=== PATIENT | male | born 1955 | race Two or more races ===

== ENCOUNTER 2018-05-21 16:15 | Emergency (ER) | payer MEDICARE, MEDICAID ==
[~2018-05-21] VITALS: Ht 157.5 cm; Wt 80.7 kg
[2018-05-21 16:20] VITALS: BP 152/90
[2018-05-21] MEDS ORDERED: METOPROLOL TART25 MG ORAL (16:26)
[2018-05-21] MEDS ORDERED: METFORMIN HCL500 M1 ORAL (16:26)
[2018-05-21] MEDS ORDERED: ZANTAC150 MG ORAL (16:26)
[2018-05-21] MEDS ORDERED: AMLODIPINE BES2.5 MG ORAL (16:26)
[2018-05-21] MEDS ORDERED: ENALAPRIL MALEAT5 MG ORAL (16:26)
[2018-05-21] MEDS ORDERED: ASPIRIN81 MG ORAL (16:26)
[2018-05-21] MEDS ORDERED: Morphine Sulfate 4mg/ml Inj (IV/IM USE ONLY) IVP ONE (16:30)
[2018-05-21] MEDS ORDERED: Isovue-300 100ml vial INJ PRN (16:30)
--- NOTE | 2018-05-21 16:53 | Emergency Room Report ---
History of Present Illness General Chief Complaint: Abdominal Pain Source: Patient, EMS Present Illness HPI Patient presents with severe abdominal pain. This began earlier today. This is his bellybutton. Radiating throughout his abdomen. He denies any vomiting or diarrhea. He is a been able to move his bowels without any trouble. Denies any fevers or chills. The pain is 8-9/10 burning and aching and constant. He believes that he started having pain is bellybutton 2 years ago after cardiac catheterization while he is waking up from anesthesia he sat up quickly and started having pain there but it is not been painful until today. Denies dysuria. He is thirsty and anxious. He denies recent chest pain, cough, dyspnea. Allergies: Coded Allergies: No Known Allergies (Unverified , 05/21/18) Patient History Past Medical History: see triage record Past Surgical History: CABG Social History: Denies: smoking, alcohol use, drug use Social History Narrative from [facility] [place] Reviewed Nursing Documentation: PMH: Agreed; PSxH: Agreed Nursing Documentation-PMH Hx Cardiac Problems: Yes - heard surgery 2 years ago Hx Hypertension: Yes Hx Diabetes: Yes Review of Systems All Other Systems: negative except mentioned in HPI Physical Exam Vital Signs Date Time Temp Pulse Resp B/P (MAP) Pulse Ox O2 Delivery O2 Flow Rate FiO2 05/21/18 16:08 97.9 90 22 152/90 93 Room Air Sp02 EP Interpretation: reviewed, normal General Appearance: well appearing, GCS 15, mild distress Head: normocephalic Eyes: bilateral eye normal inspection, bilateral eye PERRL ENT: moist mucus membranes Neck: supple Respiratory: lungs clear, normal breath sounds Cardiovascular #1: regular rate, rhythm Cardiovascular #2: 2+ radial (R) Gastrointestinal: normal inspection, normal bowel sounds, no mass, non- distended, no rebound, guarding, tenderness - umbilical Musculoskeletal: back normal, gait/station normal, normal range of motion Neurologic: alert, oriented x3, grossly normal Psychiatric: anxious Skin: normal inspection, warm/dry Medical Decision Making Diagnostic Impression: Primary Impression: Strangulated umbilical hernia ER Course Patient presents with abdominal pain. Differential includes diverticulitis, umbilical hernia with strangulation, UTI, gastritis amongst others. Evaluation will be with EKG, chest x-rays CT the abdomen and labs. My pressing on the right hernia would not reduce immediately but the patient has severe pain there. He will also be getting IV hydration and analgesia. EKG no injury. CXR CABG. Labs with normal WBC. CT with umbilical hernia with small bowel present. Improved initially with morphine. Then pain returned. Dr. Lo saw patient and agrees patient needs to go to OR. Requests dose of Ancef. Discussed with HMO. Dr. Howard accepts for transfer. Laboratory Tests Test 05/21/18 16:40 05/21/18 17:40 White Blood Count 8.5 K/UL (4.8-10.8) Red Blood Count 6.43 M/UL (4.70-6.10) H Hemoglobin 18.0 G/DL (14.2-18.0) Hematocrit 53.9 % (42.0-52.0) H Mean Corpuscular Volume 84 FL (80-99) Mean Corpuscular Hemoglobin 28.0 PG (27.0-31.0) Mean Corpuscular Hemoglobin Concent 33.5 G/DL (32.0-36.0) Red Cell Distribution Width 10.8 % (11.6-14.8) L Platelet Count 285 K/UL (150-450) Mean Platelet Volume 7.1 FL (6.5-10.1) Neutrophils (%) (Auto) 63.0 % (45.0-75.0) Lymphocytes (%) (Auto) 29.8 % (20.0-45.0) Monocytes (%) (Auto) 5.0 % (1.0-10.0) Eosinophils (%) (Auto) 1.2 % (0.0-3.0) Basophils (%) (Auto) 1.0 % (0.0-2.0) Prothrombin Time 10.5 SEC (9.30-11.50) Prothrombin Time INR 1.0 (0.9-1.1) PTT 31 SEC (23-33) Sodium Level 135 MMOL/L (136-145) L Potassium Level 4.0 MMOL/L (3.5-5.1) Chloride Level 98 MMOL/L (98-107) Carbon Dioxide Level 25 MMOL/L (21-32) Anion Gap 12 mmol/L (5-15) Blood Urea Nitrogen 16 mg/dL (7-18) Creatinine 1.4 MG/DL (0.55-1.30) H Estimate Glomerular Filtration Rate 50.9 mL/min (>60) Glucose Level 165 MG/DL (74-106) H Calcium Level 9.6 MG/DL (8.5-10.1) Total Bilirubin 0.6 MG/DL (0.2-1.0) Aspartate Amino Transferase (AST) 25 U/L (15-37) Alanine Aminotransferase (ALT) 48 U/L (12-78) Alkaline Phosphatase 126 U/L (46-116) H Total Creatine Kinase 166 U/L (26-308) Troponin I 0.000 ng/mL (0.000-0.056) Total Protein 8.5 G/DL (6.4-8.2) H Albumin 4.0 G/DL (3.4-5.0) Globulin 4.5 g/dL Albumin/Globulin Ratio 0.9 (1.0-2.7) L Lipase 321 U/L (73-393) Urine Color Lorri Urine Appearance Slightly cloudy Urine pH 8 (4.5-8.0) Urine Specific [place] 1.010 (1.005-1.035) Urine Protein 3+ (NEGATIVE) H Urine Glucose (UA) Negative (NEGATIVE) Urine Ketones 2+ (NEGATIVE) H Urine Blood Negative (NEGATIVE) Urine Nitrite Negative (NEGATIVE) Urine Bilirubin Negative (NEGATIVE) Urine Ictotest Negative (NEGATIVE) Urine Urobilinogen Normal MG/DL (0.0-1.0) Urine Leukocyte Esterase 1+ (NEGATIVE) H Urine RBC 0 /HPF (0 - 0) Urine WBC 5-10 /HPF (0 - 0) H Urine Squamous Epithelial Cells Occasional /LPF Urine Bacteria Few /HPF (NONE) Urine Mucus Few /LPF (NONE/OCC) H EKG Diagnostic Results Rate: normal Rhythm: NSR ST Segments: no acute changes Rhythm Strip Diag. Results EP Interpretation: yes Rhythm: NSR, no PVC's, no ectopy CT/MRI/US Diagnostic Results CT/MRI/US Diagnostic Results : Imaging Test Ordered: abd/pelvis Impression umbilical hernia with small bowel Last Vital Signs Date Time Temp Pulse Resp B/P (MAP) Pulse Ox O2 Delivery O2 Flow Rate FiO2 05/21/18 22:45 98.1 67 16 135/84 97 Room Air Status: improved Disposition: XFER T-TRM HOSP Condition: Serious Everett Bynum MD May 21, 2018 16:53
[2018-05-21 16:54] LABS: EOSINOPHILS % (AUTO) 1.2 % (0.0-3.0); HEMATOCRIT 53.9 % (42.0-52.0); LYMPHOCYTES % (AUTO) 29.8 % (20.0-45.0); MEAN CORPUSCULAR VOLUME 84 FL (80-99); PLATELET COUNT 285 K/UL (150-450); RED BLOOD COUNT 6.43 M/UL (4.70-6.10); RED CELL DISTRIBUTION WIDTH 10.8 % (11.6-14.8); WHITE BLOOD COUNT 8.5 K/UL (4.8-10.8)
[2018-05-21 17:29] LABS: ANION GAP 12 mmol/L (5-15); BLOOD UREA NITROGEN 16 mg/dL (7-18); CALCIUM 9.6 MG/DL (8.5-10.1); CARBON DIOXIDE 25 MMOL/L (21-32); CHLORIDE 98 MMOL/L (98-107); CREATININE 1.4 MG/DL (0.55-1.30); SODIUM 135 MMOL/L (136-145)
[2018-05-21 17:33] LABS: ALANINE AMINOTRANSFERASE 48 U/L (12-78); ALBUMIN/GLOBULIN RATIO 0.9 (1.0-2.7); ALKALINE PHOSPHATASE 126 U/L (46-116); ASPARTATE AMINO TRANSFERASE 25 U/L (15-37); BILIRUBIN,TOTAL 0.6 MG/DL (0.2-1.0); CREATINE KINASE 166 U/L (26-308)
[2018-05-21 17:41] VITALS: BP 140/65
[2018-05-21 17:51] LABS: BILIRUBIN, URINE NEGATIVE (NEGATIVE); COLOR,URINE AMBER; GLUCOSE, URINE (UA) NEGATIVE (NEGATIVE); KETONES,URINE 2+ (NEGATIVE); LEUKOCYTE ESTERASE ,URINE 1+ (NEGATIVE); NITRITE,URINE NEGATIVE (NEGATIVE); PH,URINE 8 (4.5-8.0); PROTEIN,URINE 3+ (NEGATIVE); UROBILINOGEN,URINE NORMAL MG/DL (0.0-1.0)
[2018-05-21 17:57] LABS: APPEARANCE,URINE SLIGHTLY CLOUDY
[2018-05-21] MEDS ORDERED: fentaNYL 100 mcg/2 mL IV ONE (20:30)
[2018-05-21] MEDS ORDERED: ceFAZolin 2gm/50ml Premix 50 ML IVPB ONE (21:15)
[2018-05-21 21:45] VITALS: BP 136/67
[2018-05-21 22:10] VITALS: BP 135/84
--- NOTE | 2018-05-21 22:30 | Consultation ---
DATE OF CONSULTATION: 05/21/2018 CONSULTING PHYSICIAN: Cortney Lo M.D. REFERRING PHYSICIAN: Everett Bynum M.D. REASON FOR CONSULTATION: Pain in the umbilicus. HISTORY OF PRESENT ILLNESS: This is a 63-year-old male, who presented to emergency room complaining of a lump and pain in the umbilicus since noon today. He stated that he denied any previous history of similar episodes. He has a sudden onset of this pain. He denies nausea or vomiting. He has had a normal bowel movement yesterday. PAST MEDICAL HISTORY: He denies allergies, asthma, and renal diseases. He has history of diabetes, hypertension, and coronary artery disease. PAST SURGICAL HISTORY: Include coronary artery bypass graft. MEDICATIONS: Include amlodipine, aspirin, enalapril, metformin, metoprolol, and ranitidine. SOCIAL HISTORY: The patient is a 63-year-old male, who is and father of four children. He is unemployed. He denies smoking or drinking. REVIEW OF SYSTEMS: Noncontributory. PHYSICAL EXAMINATION: GENERAL: The patient appeared to be a well-developed, well-nourished, 63-year-old male, lying on the gurney, complaining of the pain in the umbilicus. HEENT: Head is normocephalic and atraumatic. Eyes, pupils are equal, round, and reactive to light. Mouth is clear. NECK: There is no palpable thyromegaly or adenopathy. CHEST: Clear to auscultation and percussion. HEART: There is no gallop or murmur. S1 and S2 are within normal limits. He has a scar of the median sternotomy incision. ABDOMEN: Mildly protuberant, but soft. He has irreducible and tender umbilical hernia at the size of . There is no palpable organomegaly. GENITALIA: Normal. EXTREMITIES: Within normal limits. ASSESSMENT: Incarcerated umbilical hernia. PLAN: The patient requires an urgent umbilical herniorrhaphy does not wish to transfer the patient and the surgery will be performed as soon as possible. The risk and benefit has been explained to the patient. Cortney Lo M.D. DR: STEVEN JOB#: [id number] CC:
[2018-05-21 22:45] VITALS: BP 135/84
--- NOTE | 2018-05-22 10:10 | Diagnostic Imaging Report ---
Indication: Chest pain Technique: One view of the chest Comparison: none Findings: The lungs and pleural spaces are clear. The heart size is normal. There is evidence of prior CABG Impression: No acute process
--- NOTE | 2018-05-22 10:23 | Diagnostic Imaging Report ---
Indication: Abdominal pain Technique: Spiral acquisitions obtained through the abdomen and pelvis. Patient ingested a limited amount of oral contrast No IV contrast utilized, per referring physician request.. Multiplanar reconstructions were generated. Total dose length product 667.97 mGycm. CTDIvol(s) 12.03 mGy. Dose reduction achieved using automated exposure control Comparison: None Findings: There is and umbilical hernia which contains a knuckle of small bowel. Small bowel loops leading into the hernia are dilated and fluid-filled, and small bowel loops leading out of the hernia are collapsed. There is no significant infiltration of the fat surrounding the hernia or fluid within the hernia sac. The appendix is normal. There are colonic diverticula. No evidence of diverticulitis. No free or loculated intraperitoneal gas or fluid is evident. Distal esophagus, stomach, duodenum are unremarkable. Lack of IV contrast limits assessment of the solid organs. The liver, gallbladder, bile ducts, pancreas, spleen, adrenals, right kidney are unremarkable. The left kidney demonstrates a large cyst coming off of the upper pole. No renal or ureteral calculi, hydronephrosis, or hydroureter. The bladder is unremarkable. No retroperitoneal or mesenteric mass or adenopathy. No pelvic mass or adenopathy. There is a tiny fat-containing left inguinal hernia. There are small bilateral scrotal hydroceles incidentally noted. The prostate and seminal vesicles are unremarkable. The lung bases demonstrate posterior dependent atelectatic changes. The bones are unremarkable. Impression: Positive for small bowel obstruction secondary to an umbilical hernia containing a knuckle of small bowel Colonic diverticulosis. No evidence of diverticulitis Incidental findings as noted, including left renal cyst, bilateral small scrotal hydroceles, small fat-containing left inguinal hernia This agrees with the preliminary interpretation provided overnight by [facility] teleradiology service. The CT scanner at [facility] is accredited by the [employer] and the scans are performed using protocols designed to limit radiation exposure to as low as reasonably achievable to attain images of sufficient resolution adequate for diagnostic evaluation.
== END 2018-05-21 23:20 | disposition short-term general hospital (02) ==
LOC: EDBD 16:15 → EMR 17:07
DX: K42.0 Umbilical hernia with obstruction, without gangrene (principal); I10 Essential (primary) hypertension; E11.9 Type 2 diabetes mellitus without complications; Z86.79 Personal history of other diseases of the circulatory system; Z95.1 Presence of aortocoronary bypass graft
CPT/HCPCS: 36415; 71045; 74176; 80053; 81003; 82550; 83690; 84484; 85025; 85610; 85730; 86850; 86900; 86901; 93005; 96361; 96365; 96375; 99285; J0690; J2270; J2405; J3010; S0028

== ENCOUNTER 2018-07-02 07:38 | Emergency (ER) | payer MEDICARE, MEDICAID ==
[~2018-07-02] VITALS: Ht 172.7 cm; Wt 81.6 kg
--- NOTE | 2018-07-02 07:14 | NUR ---
ED Nurse Note: Pt from home brought in by ambulance due to right leg pain x 3 days. Denies trauma/injury. Pt states pain is starting from his right hip that shoots to the back of his lower leg. Pt is AAO x4, in severe pain and grimacing. No respiratory distress.
--- NOTE | 2018-07-02 07:17 | NUR ---
ED Nurse Note: Dr Bynum at the bed side.
--- NOTE | 2018-07-02 07:32 | NUR ---
ED Nurse Note: Dr Bynum is okay for pt to have oral intake. Water provided to patient.
[~2018-07-02 07:38] MED LIST: AMLODIPINE BES2.5 MG ORAL; ASPIRIN81 MG ORAL; ATORVASTATIN CA20 MG ORAL; ENALAPRIL MALEAT5 MG ORAL; METFORMIN HCL500 M1 ORAL; METOPROLOL TART25 MG ORAL; NITRO-BID1 GM TOPIC; ZANTAC150 MG ORAL
[2018-07-02] MEDS ORDERED: Ketorolac 30mg Inj IV ONE (07:45)
[2018-07-02] MEDS ORDERED: Morphine Sulfate 4mg/ml Inj (IV/IM USE ONLY) IVP ONE (07:45)
[2018-07-02 08:00] VITALS: BP 122/72
--- NOTE | 2018-07-02 08:00 | NUR ---
ED Nurse Note: Blood collected and sent.
--- NOTE | 2018-07-02 08:05 | NUR ---
ED Nurse Note: Patient denies any pain at this time. Relaxed and calm. VSS. Waiting for xray and lab results.
--- NOTE | 2018-07-02 08:05 | Emergency Room Report ---
History of Present Illness General Chief Complaint: Pain Source: Patient Present Illness HPI Patient presents with right thigh and knee pain. This began 3-4 days ago. It' s been increasingly getting worse. He states the pain is severe at this time. He denies back pain. Denies any fevers, chills, nausea, vomiting, diarrhea, dysuria. He denies having pain like this before. He's been taking Motrin. The last dose was last night. It helps just a little bit. The pain is extreme at this time 10/10 burning. Is not worse when he is standing or the legs dependent. It radiates both towards the hip and also downwards towards the calf. The patient is hypertensive, diabetic and has had open heart surgery. He had a fleeting bout of chest pain when the pain got severe today. He denies any edema or calf tenderness. The patient was seen in May for a strangulated umbilical hernia. His hemoglobin at that time was 18. Allergies: Coded Allergies: No Known Allergies (Unverified , 05/21/18) Patient History Past Medical History: see triage record Past Surgical History: CABG Social History: Denies: smoking, alcohol use Social History Narrative At home Reviewed Nursing Documentation: PMH: Agreed; PSxH: Agreed Nursing Documentation-PMH Past Medical History: No History, Except For Hx Hypertension: Yes Hx Diabetes: Yes Review of Systems All Other Systems: negative except mentioned in HPI Physical Exam Vital Signs Date Time Temp Pulse Resp B/P (MAP) Pulse Ox O2 Delivery O2 Flow Rate FiO2 07/02/18 07:04 86 20 148/80 Room Air 98% sat Sp02 EP Interpretation: reviewed, normal General Appearance: alert, GCS 15, moderate distress Head: normocephalic Eyes: bilateral eye normal inspection, bilateral eye PERRL ENT: moist mucus membranes Neck: supple Respiratory: lungs clear, normal breath sounds Cardiovascular #1: regular rate, rhythm Cardiovascular #2: 2+ radial (R) Gastrointestinal: normal inspection, normal bowel sounds, non tender, no mass, non-distended Musculoskeletal: back normal, normal range of motion, no calf tenderness, tender - Posterior knee, ligaments stable. No effusion or warmth. Passive range of motion of hip and ankle without pain. Straight leg raise negative Neurologic: alert, oriented x3, motor strength/tone normal, DTRs symmetric, sensory intact, speech normal Psychiatric: anxious Skin: normal inspection, warm/dry Medical Decision Making Diagnostic Impression: Primary Impression: Right knee pain Qualified Codes: M25.561 - Pain in right knee Additional Impressions: Marginal sclerosis distal femoral shaft Polycythemia ER Course Patient presents with right thigh pain for 3-4 days. Based on exam this is not coming from his back. Differential includes gout, osteoarthritis, pseudogout, myositis amongst others. Evaluation will be with EKG, femur x-ray and labs. The patient will be treated with IV hydration and analgesia. EKG without injury. Right femur with marginal sclerosis distal area. CBC with normal white count but elevated hemoglobin. CMP negative. Uric acid negative. Urinalysis negative. Patient improved with treatment. Now ambulatory. Hgb is elevated. Will give fluids (was elevated in May). Discussed findings with patient and given x-ray copies and labs. Patient stable for outpatient observation and treatment. Laboratory Tests Test 07/02/18 07:50 07/02/18 08:18 White Blood Count 7.1 K/UL (4.8-10.8) Red Blood Count 6.36 M/UL (4.70-6.10) H Hemoglobin 18.5 G/DL (14.2-18.0) *H Hematocrit 55.2 % (42.0-52.0) H Mean Corpuscular Volume 87 FL (80-99) Mean Corpuscular Hemoglobin 29.1 PG (27.0-31.0) Mean Corpuscular Hemoglobin Concent 33.5 G/DL (32.0-36.0) Red Cell Distribution Width 11.5 % (11.6-14.8) L Platelet Count 281 K/UL (150-450) Mean Platelet Volume 7.4 FL (6.5-10.1) Neutrophils (%) (Auto) 54.4 % (45.0-75.0) Lymphocytes (%) (Auto) 36.5 % (20.0-45.0) Monocytes (%) (Auto) 6.0 % (1.0-10.0) Eosinophils (%) (Auto) 1.4 % (0.0-3.0) Basophils (%) (Auto) 1.6 % (0.0-2.0) Erythrocyte Sedimentation Rate 7 MM/HR (0-20) Prothrombin Time 10.4 SEC (9.30-11.50) Prothrombin Time INR 1.0 (0.9-1.1) PTT 29 SEC (23-33) Sodium Level 138 MMOL/L (136-145) Potassium Level 3.5 MMOL/L (3.5-5.1) Chloride Level 100 MMOL/L (98-107) Carbon Dioxide Level 20 MMOL/L (21-32) L Anion Gap 19 mmol/L (5-15) H Blood Urea Nitrogen 7 mg/dL (7-18) Creatinine 1.3 MG/DL (0.55-1.30) Estimate Glomerular Filtration Rate 55.4 mL/min (>60) Glucose Level 164 MG/DL (74-106) H Uric Acid 6.6 MG/DL (2.6-7.2) Calcium Level 10.0 MG/DL (8.5-10.1) Total Bilirubin 0.6 MG/DL (0.2-1.0) Aspartate Amino Transferase (AST) 26 U/L (15-37) Alanine Aminotransferase (ALT) 46 U/L (12-78) Alkaline Phosphatase 105 U/L (46-116) C-Reactive Protein, Quantitative < 0.4 mg/dL (0.00-0.90) Total Protein 7.8 G/DL (6.4-8.2) Albumin 4.1 G/DL (3.4-5.0) Globulin 3.7 g/dL Albumin/Globulin Ratio 1.1 (1.0-2.7) Urine Color Pale yellow Urine Appearance Clear Urine pH 9 (4.5-8.0) Urine Specific [place] 1.015 (1.005-1.035) Urine Protein 2+ (NEGATIVE) H Urine Glucose (UA) Negative (NEGATIVE) Urine Ketones 2+ (NEGATIVE) H Urine Blood Negative (NEGATIVE) Urine Nitrite Negative (NEGATIVE) Urine Bilirubin Negative (NEGATIVE) Urine Urobilinogen Normal MG/DL (0.0-1.0) Urine Leukocyte Esterase Negative (NEGATIVE) Urine RBC 0 /HPF (0 - 0) Urine WBC 0 /HPF (0 - 0) Urine Squamous Epithelial Cells None /LPF (NONE/OCC) Urine Bacteria None /HPF (NONE) EKG Diagnostic Results Rate: normal Rhythm: NSR ST Segments: no acute changes - Left axis deviation Rhythm Strip Diag. Results EP Interpretation: yes Rhythm: NSR, no PVC's, no ectopy Other X-Ray Diagnostic Results Other X-Ray Diagnostic Results : X-Ray ordered: R femur # of Views/Limited Vs Complete: 4 View Indication: Pain EP Interpretation: Yes Interpretation: no dislocation, no soft tissue swelling, no fractures, other - marginated sclerosis distal femoral shaft Impression: Other Electronically Signed by: Electronically signed by Everett Bynum MD Last Vital Signs Date Time Temp Pulse Resp B/P (MAP) Pulse Ox O2 Delivery O2 Flow Rate FiO2 07/02/18 10:11 97.9 64 17 117/67 98 Room Air Status: improved Disposition: HOME, SELF-CARE Condition: Improved Scripts Acetaminophen (Tylenol) 325 Mg Tablet 650 MG ORAL Q6H PRN for Prn Pain/Headache/Temp > 101, #20 TAB 0 Refills Prov: Everett Bynum MD 07/02/18 Tramadol Hcl* (ULTRAM*) 50 Mg Tablet 50 MG ORAL Q6H PRN for For Pain, #10 TAB 0 Refills Prov: Everett Bynum MD 07/02/18 Everett Bynum MD Jul 02, 2018 08:05
--- NOTE | 2018-07-02 08:15 | NUR ---
ED Nurse Note: safety technician at the bed side for xray.
--- NOTE | 2018-07-02 08:21 | NUR ---
ED Nurse Note: Urine collected and sent.
[2018-07-02 08:22] LABS: BASOPHILS % (AUTO) 1.6 % (0.0-2.0); EOSINOPHILS % (AUTO) 1.4 % (0.0-3.0); HEMATOCRIT 55.2 % (42.0-52.0); LYMPHOCYTES % (AUTO) 36.5 % (20.0-45.0); MEAN CORPUSCULAR VOLUME 87 FL (80-99); NEUTROPHILS % (AUTO) 54.4 % (45.0-75.0); PLATELET COUNT 281 K/UL (150-450); RED BLOOD COUNT 6.36 M/UL (4.70-6.10); RED CELL DISTRIBUTION WIDTH 11.5 % (11.6-14.8); WHITE BLOOD COUNT 7.1 K/UL (4.8-10.8)
[2018-07-02 08:24] LABS: HEMOGLOBIN 18.5 G/DL (14.2-18.0)
[2018-07-02 08:35] LABS: APPEARANCE,URINE CLEAR; BILIRUBIN, URINE NEGATIVE (NEGATIVE); COLOR,URINE PALE YELLOW; GLUCOSE, URINE (UA) NEGATIVE (NEGATIVE); KETONES,URINE 2+ (NEGATIVE); LEUKOCYTE ESTERASE ,URINE NEGATIVE (NEGATIVE); NITRITE,URINE NEGATIVE (NEGATIVE); PH,URINE 9 (4.5-8.0); PROTEIN,URINE 2+ (NEGATIVE); UROBILINOGEN,URINE NORMAL MG/DL (0.0-1.0)
[2018-07-02 08:36] LABS: ANION GAP 19 mmol/L (5-15); BLOOD UREA NITROGEN 7 mg/dL (7-18); CARBON DIOXIDE 20 MMOL/L (21-32); CHLORIDE 100 MMOL/L (98-107); CREATININE 1.3 MG/DL (0.55-1.30); POTASSIUM 3.5 MMOL/L (3.5-5.1); SODIUM 138 MMOL/L (136-145)
[2018-07-02 08:41] LABS: ALANINE AMINOTRANSFERASE 46 U/L (12-78); ALBUMIN 4.1 G/DL (3.4-5.0); ALBUMIN/GLOBULIN RATIO 1.1 (1.0-2.7); ALKALINE PHOSPHATASE 105 U/L (46-116); ASPARTATE AMINO TRANSFERASE 26 U/L (15-37); BILIRUBIN,TOTAL 0.6 MG/DL (0.2-1.0)
--- NOTE | 2018-07-02 09:10 | NUR ---
ED Nurse Note: Patient ambulated to the restroom with steady gait.
--- NOTE | 2018-07-02 09:20 | Diagnostic Imaging Report ---
EXAM: XR Right Femur, 2 Views CLINICAL HISTORY: PAIN TECHNIQUE: Frontal and lateral views of the right femur. COMPARISON: No relevant prior studies available. FINDINGS: Bones/joints: Well marginated sclerosis of the distal femoral shaft on lateral view. No acute fracture. No dislocation. Soft tissues: Unremarkable. IMPRESSION: No acute fracture or dislocation. Well marginated sclerosis of the distal femoral shaft. Consider CT or MR for further evaluation. [employer] 07/02/18 09:45 Call From [facility] Misa BLAS on 07/02 09:44 (-08:00)
--- NOTE | 2018-07-02 09:20 | NUR ---
ED Nurse Note: Pt ambulated back to his bed. Re-attached to telemetry monitor. VSS.
[2018-07-02] MEDS ORDERED: Sodium Chloride 500ML 500 ML IV ONE (09:30)
[2018-07-02 10:05] VITALS: BP 117/67
[2018-07-02] MEDS ORDERED: TRAMADOL HCL50 MG ORAL (10:06)
[2018-07-02] MEDS ORDERED: TYLENOL325 MG ORAL (10:06)
[2018-07-02 10:11] VITALS: BP 117/67
--- NOTE | 2018-07-02 10:11 | NUR ---
ED Nurse Note: Pt cleared by ER MD for discharge. ACI/prescription was given and explained to pt and verbalized understanding of teachings. All medical devices such as ID band/IV removed. Pt is AAO x4, ambulatory and left with all personal belongings.
--- NOTE | 2018-07-02 11:06 | Cardiology Report ---
APPROVED REPORT EKG Measurement Heart [id number] Normal sinus rhythm Left axis deviation Possible Anterior infarct, age undetermined Abnormal ECG
== END 2018-07-02 13:00 | disposition home or self-care (01) ==
LOC: EDBD 07:38 → EMR 10:15
DX: M25.561 Pain in right knee (principal); D75.1 Secondary polycythemia; M89.9 Disorder of bone, unspecified; I10 Essential (primary) hypertension; E11.9 Type 2 diabetes mellitus without complications; M79.651 Pain in right thigh
CPT/HCPCS: 36415; 73552; 80053; 81001; 84550; 85025; 85610; 85651; 85730; 86140; 93005; 96374; 96375; 99284; J1885; J2270; J2405

== ENCOUNTER 2019-05-23 22:27 | Inpatient (IN) | payer MEDICAID, MEDICARE, OTHER ==
[~2019-05-23] VITALS: Ht 165.1 cm; Wt 78.0 kg
[~2019-05-23 22:27] MED LIST changes: +TRAMADOL HCL50 MG ORAL; +TYLENOL325 MG ORAL
--- NOTE | 2019-05-23 22:30 | NUR ---
ED Nurse Note: pt has an umbilical hernia that is tender to palpation. pt refused letting ERMD reduce the hernia. will continue to monitor pt
--- NOTE | 2019-05-23 22:30 | NUR ---
ED Nurse Note: pt presents to ED from home via EMS arrival, RA 26 for abd px. pt reports the px started at 1100 this AM and has gotten worse. pt rates the px a 10/10 with some nuasea but no vomiting or diarrhea. pt states that he has an umbilical hernia and that is the area in which the px is. pt denies radiation of px
[2019-05-23 22:33] VITALS: BP 154/96
[2019-05-23] MEDS ORDERED: Omnipaque-300 100ml vial INJ PRN (22:45)
[2019-05-23 23:15] LABS: BASOPHILS % (AUTO) 0.7 % (0.0-2.0); HEMATOCRIT 54.1 % (42.0-52.0); LYMPHOCYTES % (AUTO) 19.3 % (20.0-45.0); MEAN CORPUSCULAR VOLUME 84 FL (80-99); MONOCYTES % (AUTO) 4.6 % (1.0-10.0); NEUTROPHILS % (AUTO) 74.4 % (45.0-75.0); PLATELET COUNT 343 K/UL (150-450); RED BLOOD COUNT 6.46 M/UL (4.70-6.10); RED CELL DISTRIBUTION WIDTH 11.4 % (11.6-14.8)
[2019-05-23 23:33] LABS: ANION GAP 15 mmol/L (5-15); BLOOD UREA NITROGEN 17 mg/dL (7-18); CALCIUM 10.2 MG/DL (8.5-10.1); CARBON DIOXIDE 25 MMOL/L (21-32); CHLORIDE 98 MMOL/L (98-107); CREATININE 1.4 MG/DL (0.55-1.30); POTASSIUM 3.7 MMOL/L (3.5-5.1); SODIUM 138 MMOL/L (136-145)
[2019-05-23 23:35] LABS: HEMOGLOBIN 18.4 G/DL (14.2-18.0)
[2019-05-23 23:45] LABS: ALANINE AMINOTRANSFERASE 34 U/L (12-78); ALBUMIN 4.1 G/DL (3.4-5.0); ALKALINE PHOSPHATASE 105 U/L (46-116); ASPARTATE AMINO TRANSFERASE 19 U/L (15-37); BILIRUBIN,TOTAL 0.5 MG/DL (0.2-1.0)
[2019-05-23 23:52] LABS: APPEARANCE,URINE CLEAR; BILIRUBIN, URINE NEGATIVE (NEGATIVE); COLOR,URINE PALE YELLOW; GLUCOSE, URINE (UA) NEGATIVE (NEGATIVE); KETONES,URINE NEGATIVE (NEGATIVE); LEUKOCYTE ESTERASE ,URINE 1+ (NEGATIVE); NITRITE,URINE NEGATIVE (NEGATIVE); PH,URINE 8 (4.5-8.0); PROTEIN,URINE 3+ (NEGATIVE); UROBILINOGEN,URINE NORMAL MG/DL (0.0-1.0)
[2019-05-24] VITALS (15 sets, daily range): BP systolic 108–152; BP diastolic 58–88
[2019-05-24] MEDS ORDERED: Morphine Sulfate 4mg/ml Inj (IV USE ONLY) IVP ONE (01:00)
--- NOTE | 2019-05-24 02:00 | NUR ---
ED Nurse Note: pt appears to be asleep in his bed with his eyes closed. VSS, breathing is even and non-labored. pt given ice packs for umbilical hernia per ERMD request.
--- NOTE | 2019-05-24 02:21 | Emergency Room Report ---
History of Present Illness General Chief Complaint: Abdominal Pain Source: Patient Present Illness HPI 64-year-old male presents with severe abdominal pain 4 hours prior to arrival. He reports pain at maria a-umbilicus. He notes bulging at the umbilicus which she is unable to reduce on its own. He denies any prior history of similar symptoms. And denies any prior history of hernia. He reports prior history of surgeries. He denies any vomiting but reports sensation of nausea. He denies any change in bowel habits. Denies obstipation Allergies: Coded Allergies: No Known Allergies (Unverified , 05/21/18) Patient History PMH Narrative Asthma, kidney disease, diabetes, hypertension, coronary artery disease status post CABG PSxH Narrative CABG 6 years ago Nursing Documentation-PMH Hx Cardiac Problems: Yes - heard surgery 2 years ago Hx Hypertension: Yes Hx Diabetes: Yes Review of Systems Constitutional: Denies: chills, fever Respiratory: Denies: cough, shortness of breath Cardiovascular: Denies: chest pain, palpitations Gastrointestinal: Reports: abdominal pain; Denies: diarrhea, vomiting Genitourinary: Denies: hematuria, pain Musculoskeletal: Denies: joint swelling Skin: Denies: rash, lesions Neurological: Denies: headache, dizziness Physical Exam Vital Signs Date Time Temp Pulse Resp B/P (MAP) Pulse Ox O2 Delivery O2 Flow Rate FiO2 05/23/19 22:22 97.5 88 19 154/96 (115) 100 Room Air Sp02 EP Interpretation: reviewed General Appearance: well appearing, non-toxic, moderate distress - Secondary to pain Head: normocephalic, atraumatic Eyes: bilateral eye normal inspection ENT: hearing grossly normal, EOM grossly intact, moist mucus membranes Neck: supple Respiratory: lungs clear, normal breath sounds, no respiratory distress, speaking full sentences Cardiovascular #1: regular rate, rhythm, normal capillary refill, other - Well- healed chest scar Cardiovascular #2: 2+ radial (R), 2+ radial (L) Gastrointestinal: soft, non-distended, tenderness, hernia - 2 cm over umbilicus dark dusky to color, non-reducible Rectal: deferred Musculoskeletal: moves extm spontaneously, no lower extremity edema Neurologic: grossly normal Psychiatric: mood/affect normal Skin: warm/dry, normal turgor Procedures Critical Care Time Critical Care Time Critical care time includes 35 minutes, not include billable procedures or teaching time, for severe abdominal pain and strangulated versus incarcerated hernia Medical Decision Making Diagnostic Impression: Primary Impression: Hernia Additional Impressions: SBO (small bowel obstruction) Strangulated hernia of abdominal wall ER Course 64-year-old male presents with severe periumbilical abdominal pain found to have a 2 cm irreducible hernia and overlying skin changes. Ordered lab testing and CT abdomen pelvis to look for signs of strangulation or incarceration. CT noted to have small bowel obstruction with transition point being at hernia site. Contacted primary care doctor and surgeon power generation turbine room operator. Laboratory Tests Test 05/23/19 22:35 05/23/19 23:35 White Blood Count 13.0 K/UL (4.8-10.8) H Red Blood Count 6.46 M/UL (4.70-6.10) H Hemoglobin 18.4 G/DL (14.2-18.0) *H Hematocrit 54.1 % (42.0-52.0) H Mean Corpuscular Volume 84 FL (80-99) Mean Corpuscular Hemoglobin 28.4 PG (27.0-31.0) Mean Corpuscular Hemoglobin Concent 34.0 G/DL (32.0-36.0) Red Cell Distribution Width 11.4 % (11.6-14.8) L Platelet Count 343 K/UL (150-450) Mean Platelet Volume 6.5 FL (6.5-10.1) Neutrophils (%) (Auto) 74.4 % (45.0-75.0) Lymphocytes (%) (Auto) 19.3 % (20.0-45.0) L Monocytes (%) (Auto) 4.6 % (1.0-10.0) Eosinophils (%) (Auto) 1.0 % (0.0-3.0) Basophils (%) (Auto) 0.7 % (0.0-2.0) Sodium Level 138 MMOL/L (136-145) Potassium Level 3.7 MMOL/L (3.5-5.1) Chloride Level 98 MMOL/L (98-107) Carbon Dioxide Level 25 MMOL/L (21-32) Anion Gap 15 mmol/L (5-15) Blood Urea Nitrogen 17 mg/dL (7-18) Creatinine 1.4 MG/DL (0.55-1.30) H Estimate Glomerular Filtration Rate 50.7 mL/min (>60) Glucose Level 198 MG/DL (74-106) H Calcium Level 10.2 MG/DL (8.5-10.1) H Total Bilirubin 0.5 MG/DL (0.2-1.0) Aspartate Amino Transferase (AST) 19 U/L (15-37) Alanine Aminotransferase (ALT) 34 U/L (12-78) Alkaline Phosphatase 105 U/L (46-116) Total Protein 8.3 G/DL (6.4-8.2) H Albumin 4.1 G/DL (3.4-5.0) Globulin 4.2 g/dL Albumin/Globulin Ratio 1.0 (1.0-2.7) Lipase 308 U/L (73-393) Urine Color Pale yellow Urine Appearance Clear Urine pH 8 (4.5-8.0) Urine Specific [place] 1.010 (1.005-1.035) Urine Protein 3+ (NEGATIVE) H Urine Glucose (UA) Negative (NEGATIVE) Urine Ketones Negative (NEGATIVE) Urine Blood Negative (NEGATIVE) Urine Nitrite Negative (NEGATIVE) Urine Bilirubin Negative (NEGATIVE) Urine Urobilinogen Normal MG/DL (0.0-1.0) Urine Leukocyte Esterase 1+ (NEGATIVE) H Urine RBC 0-2 /HPF (0 - 0) H Urine WBC 0-2 /HPF (0 - 0) Urine Squamous Epithelial Cells Few /LPF (NONE/OCC) Urine Bacteria None /HPF (NONE) Last Vital Signs Date Time Temp Pulse Resp B/P (MAP) Pulse Ox O2 Delivery O2 Flow Rate FiO2 05/24/19 02:02 93 20 127/77 96 Room Air 05/24/19 01:35 97.5 Reevaluation Impression Discussed case with Dr Page - Surgeon power generation turbine room operator who came in to evaluate patient 04:03- Hernia is not reducible. Dr. Branham will take patient to OR for strangulated hernia Disposition: ADMITTED INPATIENT Referrals: [facility],REFERRING (PCP) Blue Cruz M.D. May 24, 2019 02:21
--- NOTE | 2019-05-24 03:34 | NUR ---
ED Nurse Note: called and gave repor to floor nurse LIBRA Recio
--- NOTE | 2019-05-24 03:45 | NUR ---
NURSE NOTES: Received report from LIBRA Brady ED by phone. Pt needs emergency surgery and will go to OR from ED.
--- NOTE | 2019-05-24 03:48 | NUR ---
ED Nurse Note: surgeon Dr. Gillespie at pt bedside with import coordination and production head Addendum: 05/24/19 at 0456 by MILI pt will go to surgery, consents have been signed
[2019-05-24] MEDS ORDERED: Sodium Chloride 550 ML IV SCH (04:03)
[2019-05-24] MEDS ORDERED: fentaNYL 100 mcg/2 mL IV ONE (04:23)
[2019-05-24] MEDS ORDERED: Rocuronium Bromide 50mg/5ml Inj IV ONE (04:28)
[2019-05-24] MEDS ORDERED: Bupivacaine 0.25% Inj 30ml INJ ONE (04:29)
[2019-05-24] MEDS ORDERED: Bacitracin 50000 Units Vial ONE (04:29)
--- NOTE | 2019-05-24 04:34 | Pre-Procedure Note/Attestation ---
Pre-Procedure Note/Attestation Complete Prior to Procedure Planned Procedure: not applicable Procedure Narrative: repair of incarcerated umbilical hernia Indications for Procedure Pre-Operative Diagnosis: incarcerated umbilical hernia Attestation I attest that I discussed the nature of the procedure; its benefits; risks and complications; and alternatives (and the risks and benefits of such alternatives ), prior to the procedure, with the patient (or the patient's legal canvas products sales representative). I attest that, if there was a reasonable possibility of needing a blood transfusion, the patient (or the patient's legal canvas products sales representative) was given the [facility] standardized written summary, pursuant to the [place] Blood Safety Act ([place] Health and Safety Code # 1645, as amended). I attest that I re-evaluated the patient just prior to the surgery and that there has been no change in the patient's H&P, except as documented below: Cortney Lo MD May 24, 2019 04:34
--- NOTE | 2019-05-24 04:38 | Anethesia Preoperative Eval ---
Anesthesia Pre-op PMH/ROS General Date of Evaluation: May 24, 2019 Time of Evaluation: 04:38 Anesthesiologist: opal ASA Score: ASA 3 Mallampati Score Class I : Soft palate, uvula, fauces, pillars visible Class II: Soft palate, uvula, fauces visible Class III: Soft palate, base of uvula visible Class IV: Only hard plate visible Mallampati Classification: Class III Surgeon: Shelbi Diagnosis: Strangulated Hernia repair Surgical Procedure: Repair o stangulate hernia repair Anesthesia History: none Family History: no anesthesia problems Allergies: Coded Allergies: No Known Allergies (Unverified , 05/21/18) Medications: see eMAR Patient NPO?: Yes NPO Date: May 24, 2019 NPO Time: 00:01 Past Medical History Cardiovascular: Reports: HTN, CAD, AR Pulmonary: Denies: asthma, COPD, SARAH, other Gastrointestinal/Genitourinary: Reports: GERD; Denies: CRI, ESRD, other Neurologic/Psychiatric: Denies: dementia, CVA, depression/anxiety, TIA, other Endocrine: Reports: DM HEENT: Denies: cataract (L), cataract (R), glaucoma, MANZANITA (L), MANZANITA (R), other Hematology/Immune: Denies: anemia, DVT, bleeding disorder, other Musculoskeletal/Integumentary: Denies: OA, RA, DJD, DDD, edema, other Other: obesity PSxH Narrative: CABG Anesthesia Pre-op Phys. Exam Physician Exam Last Vital Signs Date Time Temp Pulse Resp B/P (MAP) Pulse Ox O2 Delivery O2 Flow Rate FiO2 05/24/19 02:02 93 20 127/77 96 Room Air 05/24/19 01:35 97.5 Constitutional: NAD Neurologic: CN 2-12 intact Cardiovascular: RRR Respiratory: CTA Gastrointestinal: S/NT/ND Airway Exam Mallampati Classification 3 Mallampati Score: Class III Neck: thick TMD: 2fb ROM: full Teeth: missing Dentures: upper Anesthesia Pre-op A/P Labs Hematology Test 05/23/19 22:35 White Blood Count 13.0 K/UL (4.8-10.8) H Red Blood Count 6.46 M/UL (4.70-6.10) H Hemoglobin 18.4 G/DL (14.2-18.0) *H Hematocrit 54.1 % (42.0-52.0) H Mean Corpuscular Volume 84 FL (80-99) Mean Corpuscular Hemoglobin 28.4 PG (27.0-31.0) Mean Corpuscular Hemoglobin Concent 34.0 G/DL (32.0-36.0) Red Cell Distribution Width 11.4 % (11.6-14.8) L Platelet Count 343 K/UL (150-450) Mean Platelet Volume 6.5 FL (6.5-10.1) Neutrophils (%) (Auto) 74.4 % (45.0-75.0) Lymphocytes (%) (Auto) 19.3 % (20.0-45.0) L Monocytes (%) (Auto) 4.6 % (1.0-10.0) Eosinophils (%) (Auto) 1.0 % (0.0-3.0) Basophils (%) (Auto) 0.7 % (0.0-2.0) Chemistry Test 05/23/19 22:35 Sodium Level 138 MMOL/L (136-145) Potassium Level 3.7 MMOL/L (3.5-5.1) Chloride Level 98 MMOL/L (98-107) Carbon Dioxide Level 25 MMOL/L (21-32) Anion Gap 15 mmol/L (5-15) Blood Urea Nitrogen 17 mg/dL (7-18) Creatinine 1.4 MG/DL (0.55-1.30) H Estimat Glomerular Filtration Rate 50.7 mL/min (>60) Glucose Level 198 MG/DL (74-106) H Calcium Level 10.2 MG/DL (8.5-10.1) H Total Bilirubin 0.5 MG/DL (0.2-1.0) Aspartate Amino Transf (AST/SGOT) 19 U/L (15-37) Alanine Aminotransferase (ALT/SGPT) 34 U/L (12-78) Alkaline Phosphatase 105 U/L (46-116) Total Protein 8.3 G/DL (6.4-8.2) H Albumin 4.1 G/DL (3.4-5.0) Globulin 4.2 g/dL Albumin/Globulin Ratio 1.0 (1.0-2.7) Lipase 308 U/L (73-393) Studies Pre-op Studies: EKG - SR Risk Assessment & Plan Assessment: via second hand paper machine pt denies changes in health; denies CP/SOB Plan: General Status Change Before Surgery: No Pre-Antibiotics Drug: ancef Given Within 1 Hr of Incision: Yes Time Given: 05:00 Carol Londono CRNA May 24, 2019 04:38
[2019-05-24] MEDS ORDERED: fentaNYL 100 mcg/2 mL IV PRN (04:45)
[2019-05-24] MEDS ORDERED: Hydromorphone 0.5mg/0.5ml inj IVP PRN ×2 (04:45→06:30)
[2019-05-24] MEDS ORDERED: DiphenhydrAMINE 50mg/ml Inj IVP PRN (04:45)
--- NOTE | 2019-05-24 04:47 | NUR ---
ED Nurse Note: OR nurse and marketing strategist Ariella, ID #[id number]. all consents signed
[2019-05-24] MEDS ORDERED: NS Irrig 1000ml ONE (05:00)
[2019-05-24] MEDS ORDERED: Sterile Water Irrig 1000ml IRRIG ONE (05:00)
--- NOTE | 2019-05-24 05:15 | Pre-op HX & Phy Repo 2 SIG ---
DATE OF ADMISSION: 05/24/2019 PREOPERATIVE CONSULTATION REQUESTING PHYSICIAN: The ER physician. REASON FOR CONSULTATION: Abdominal pain. HISTORY OF PRESENT ILLNESS: This is a 64-year-old, male, who presented to emergency room complaining of pain and lump in the umbilicus that is since at 10 o'clock in the morning yesterday, which makes it about 18 hours ago. Apparently, the pain is a crampy, no radiation. No vomiting. He had a normal bowel movement yesterday. He denied any fever, cough, or dysuria. He stated that he has had the similar episode six months ago, which has resolved and since then, he knew that he had the hernia. PAST MEDICAL HISTORY: Asthma and renal diseases. He has a history of diabetes, hypertension, and coronary artery disease. ALLERGIES: He denies allergies. PAST SURGICAL HISTORY: Includes coronary artery bypass graft six years ago. MEDICATIONS: He is on multiple medications including aspirin. Please see the medicine reconciliation form. This includes insulin, metformin, and metoprolol. SOCIAL HISTORY: The patient is a 64-year-old, male, who is without children. He is retired. Denies smoking or drinking. REVIEW OF SYSTEMS: Noncontributory. PHYSICAL EXAMINATION: GENERAL: The patient appeared to be a well-developed, well-nourished, 64-year-old male, lying on the gurney, complaining of pain in the umbilicus. HEENT: Head is normocephalic and atraumatic. Eyes, pupils are equal, round, and reactive to light. Mouth is clear. NECK: There is no palpable thyromegaly or adenopathy. CHEST: Clear to auscultation and percussion. HEART: There is no gallop or murmur. S1 and S2 are within normal limits. ABDOMEN: Soft and flat. Bowel sounds are present. He has a large lump in the umbilicus, which is irreducible and very tender. GENITAL: Deferred. EXTREMITIES: Within normal limits. LABORATORY DATA: The CBC has shown a WBC of 13,000 with normal differential, but the hemoglobin is 18.4 g. The chemistry showed an elevated blood glucose and the CAT scan of the abdomen has been interpreted as a strangulated umbilical hernia with small bowel obstruction. ASSESSMENT: Incarcerated umbilical hernia. PLAN: The patient requires an emergency repair of the umbilical hernia and release of the strangulation and this has been explained to the patient. He understood and granted the consent. Cortney Lo M.D. DR: NAZIA JOB#: [id number] CC:
[2019-05-24] MEDS ORDERED: Metoclopramide 10mg/2ml Inj ONE (05:39)
[2019-05-24] MEDS ORDERED: Phenylephrine 10mg/ml Vial ONE (05:39)
[2019-05-24] MEDS ORDERED: Lidocaine 1% MPF 10mg/ml 5ml ONE (05:39)
[2019-05-24] MEDS ORDERED: Propofol 200mg/20ml IV ONE (05:39)
--- NOTE | 2019-05-24 06:19 | Brief Operative Note ---
Immediate Post Operative Note Operative Note Pre-op Diagnosis: incarcerated umbilical hernia Procedure: release of strangulation and umbilical herniorrhaphy Post-op Diagnosis: strangulated umbilical hernia Findings: consistent w/pre-op dx studies Surgeon: MD Seymour Pipe Smoking Machine Operator: none Anesthesiologist: Carol Londono CRNA Anesthesia: general Specimen: yes Complications: none Condition: stable Fluids: per gift shop manager Estimated Blood Loss: minimal Drains: none Implant(s) used?: No Cortney Lo MD May 24, 2019 06:19
--- NOTE | 2019-05-24 06:19 | General Progress Note ---
Assessment/Plan Problem List: (1) SBO (small bowel obstruction) ICD Codes: K56.609 - Unspecified intestinal obstruction, unspecified as to partial versus complete obstruction SNOMED: 816322364 (2) Strangulated hernia of abdominal wall ICD Codes: K43.6 - Other and unspecified ventral hernia with obstruction, without gangrene SNOMED: 265104985 (3) Hernia ICD Codes: K46.9 - Unspecified abdominal hernia without obstruction or gangrene SNOMED: 83609847 Assessment/Plan: npo going to or abx fu labs fu post op Subjective ROS Limited/Unobtainable: Yes Allergies: Coded Allergies: No Known Allergies (Unverified , 05/21/18) Objective Last 24 Hour Vital Signs Date Time Temp Pulse Resp B/P (MAP) Pulse Ox O2 Delivery O2 Flow Rate FiO2 05/24/19 04:50 97.5 93 20 127/77 96 Room Air 05/24/19 02:02 93 20 127/77 96 Room Air 05/24/19 01:35 97.5 05/23/19 22:33 88 19 Room Air 05/23/19 22:33 97.5 87 19 154/96 100 Room Air 05/23/19 22:22 97.5 88 19 154/96 (115) 100 Room Air Intake and Output 05/23/19 05/24/19 19:00 07:00 Intake Total 0 ml Balance 0 ml Intake Oral 0 ml Laboratory Tests 05/23/19 22:35: White Blood Count 13.0H, Red Blood Count 6.46H, Hemoglobin 18.4*H, Hematocrit 54.1H, Mean Corpuscular Volume 84, Mean Corpuscular Hemoglobin 28.4, Mean Corpuscular Hemoglobin Concent 34.0, Red Cell Distribution Width 11.4L, Platelet Count 343, Mean Platelet Volume 6.5, Neutrophils (%) (Auto) 74.4, Lymphocytes (%) (Auto) 19.3L, Monocytes (%) (Auto) 4.6, Eosinophils (%) (Auto) 1.0, Basophils (%) (Auto) 0.7, Sodium Level 138, Potassium Level 3.7, Chloride Level 98, Carbon Dioxide Level 25, Anion Gap 15, Blood Urea Nitrogen 17, Creatinine 1.4H, Estimat Glomerular Filtration Rate 50.7, Glucose Level 198H, Calcium Level 10.2H, Total Bilirubin 0.5, Aspartate Amino Transf (AST/SGOT) 19, Alanine Aminotransferase (ALT/SGPT) 34, Alkaline Phosphatase 105, Total Protein 8.3H, Albumin 4.1, Globulin 4.2, Albumin/Globulin Ratio 1.0, Lipase 308 05/23/19 23:35: Urine Color Pale yellow, Urine Appearance Clear, Urine pH 8, Urine Specific [place] 1.010, Urine Protein 3+H, Urine Glucose (UA) Negative, Urine Ketones Negative, Urine Blood Negative, Urine Nitrite Negative, Urine Bilirubin Negative , Urine Urobilinogen Normal, Urine Leukocyte Esterase 1+H, Urine RBC 0-2H, Urine WBC 0-2, Urine Squamous Epithelial Cells Few, Urine Bacteria None Height (Feet): 5 Height (Inches): 5.00 Weight (Pounds): 190 General Appearance: alert EENT: normal ENT inspection Neck: supple Cardiovascular: normal rate Respiratory/Chest: decreased breath sounds Abdomen: hypoactive bowel sounds, tender Extremities: non-tender Leandro Mcdonald MD May 24, 2019 06:19
[2019-05-24] MEDS ORDERED: Metoclopramide 10mg/2ml Inj IVP PRN (06:30)
[2019-05-24] MEDS ORDERED: HYDROmorphone 1mg/ml Carpuject IVP PRN (06:30)
[2019-05-24] MEDS ORDERED: Ketorolac 30mg Inj ONE (06:31)
[2019-05-24] MEDS ORDERED: Glycopyrrolate 0.2mg/ml 1ml Vial ONE (06:31)
[2019-05-24] MEDS ORDERED: Neostigmine 1mg/ml 10ml Inj ONE (06:31)
--- NOTE | 2019-05-24 06:39 | Immediate Post-Op Evaluation ---
Immediate Post-Op Evalulation Immediate Post-Op Evalulation Procedure: repair of strangulated hernia Date of Evaluation: May 24, 2019 Time of Evaluation: 06:38 IV Fluids: 800 Blood Pressure Systolic: 127 Blood Pressure Diastolic: 60 Pulse Rate: 80 Respiratory Rate: 14 O2 Sat by Pulse Oximetry: 99 Temperature (Fahrenheit): 97.5 Nausea: No Vomiting: No Complications none Patient Status: awake, reacts, patent Hydration Status: adequate Drug: ancef Given Within 1 Hr of Incision: Yes Time Given: 05:00 Carol Londono CRNA May 24, 2019 06:39
--- NOTE | 2019-05-24 07:04 | NUR ---
HAND-OFF: Report given to LIBRA Harvey.
--- NOTE | 2019-05-24 07:45 | NUR ---
NURSE NOTES: Received pt from PACU, pt awake, A/O x 4, calm and cooperative. Denies pain, abd dressing on , CDI, abd distention noted, pt voided post operation, VS stable, pts on RA 97%, IVF infusing, BS 119 on admission, tolerating clear liquid well, no N/V, pts on Abx. call light within reach, bed in low position, bed alarm on, fall precaution maintained. will continue to monitor.
[2019-05-24] MEDS: D5 1/2NS w/KCl 20mEq 1,000 ML IV SCH ×2 (08:43→17:02)
--- NOTE | 2019-05-24 08:49 | Diagnostic Imaging Report ---
Clinical Indication: Abdominal pain Technique: No oral contrast utilized, per emergency room physician request IV administration nonionic contrast. Venous phase spiral acquisition obtained through the abdomen and pelvis. Multiplanar reconstructions were generated. Total dose length product 1207 mGycm. CTDIvol(s) 20 mGy. Dose reduction achieved using automated exposure control Comparison: 05/21/2018 noncontrast exam Findings: Lack of enteric contrast limits assessment of the GI tract. There is a periumbilical hernia. This contains a knuckle of small bowel. Small bowel leading into the hernia is dilated. Small bowel exiting the hernia and distally is collapsed. Similar findings were demonstrated on prior CT scan. There are numerous colonic diverticula. No evidence of diverticulitis. Normal appendix. No free or loculated intraperitoneal adrenals are unremarkable. Gas or fluid is evident. There are small fat-containing bilateral indirect inguinal hernias. The distal esophagus, stomach, duodenum are unremarkable. Coming off of the upper pole of the right kidney is a complex cystic mass which measures 4 cm in diameter. This demonstrates multiple visible septations and a thin but perceptible enhancing wall. The size of this lesion is similar to the prior study. The right kidney demonstrates a subcentimeter low-attenuation lesion which is too small to characterize. The liver is mildly hypoattenuating. Subcentimeter low-attenuation lesion is seen in segment 2. The gallbladder, bile ducts, pancreas, spleen, adrenals are unremarkable. No pelvic mass or adenopathy. No retroperitoneal or mesenteric mass or adenopathy. Included lung bases are clear. The bones are unremarkable Impression: Positive for small bowel obstruction secondary to a small periumbilical area containing a knuckle of small bowel. This is also evident on prior exam of 05/21/2018 Septated left upper pole renal cyst. The size of this is unchanged from 05/21/2018. However, the septations were not visible on the prior noncontrast study. Lesion is a 0 Bosniak 2F or Bosniak 3 lesion. This should be followed up with contrast CT or MRI with renal protocol Colonic diverticulosis Fatty liver This agrees with the preliminary interpretation provided overnight by [facility] teleradiology service. The CT scanner at [facility] is accredited by the [place] [employer] and the scans are performed using protocols designed to limit radiation exposure to as low as reasonably achievable to attain images of sufficient resolution adequate for diagnostic evaluation.
[2019-05-24] MEDS: Enalapril 5mg tab ORAL SCH ×2 (10:30→20:32)
[2019-05-24] MEDS ORDERED: Nitroglycerin 2% oint pkt TOPIC SCH (10:30)
[2019-05-24] MEDS ORDERED: traMADol 50mg tab ORAL PRN (10:30)
[2019-05-24] MEDS: Aspirin Baby 81mg ORAL SCH (10:30)
[2019-05-24] MEDS: NovoLOG Insulin Flexpen SUBQ SCH ×3 (11:30→20:33)
--- NOTE | 2019-05-24 11:51 | 48 Hour Post Anesthesia Eval ---
Post Anesthesia Evaluation Procedure: repair of strangulated hernia Date of Evaluation: May 24, 2019 Time of Evaluation: 11:50 Blood Pressure Systolic: 132 0: 76 Pulse Rate: 68 Respiratory Rate: 18 Temperature (Fahrenheit): 97.6 O2 Sat by Pulse Oximetry: 98 Airway: patent Nausea: No Vomiting: No Pain Intensity: 2 Hydration Status: adequate Cardiopulmonary Status: stable Mental Status/LOC: patient returned to baseline Follow-up Care/Observations: n/a Post-Anesthesia Complications: none Follow-up care needed: N/A Jesus Manuel Beckford MD May 24, 2019 11:51
[2019-05-24] MEDS: metFORMIN 500mg tab ORAL SCH ×2 (13:01→17:08)
[2019-05-24] MEDS: ceFAZolin sod 1 GM in D5W 55 ML IV SCH ×2 (14:00→21:00)
--- NOTE | 2019-05-24 15:15 | Operative Note - Dictated ---
DATE OF OPERATION: 05/24/2019 PREOPERATIVE DIAGNOSIS: Strangulated umbilical hernia. POSTOPERATIVE DIAGNOSIS: Strangulated umbilical hernia. OPERATION: Umbilical herniorrhaphy with release of the strangulation. COMPLICATION: None. SURGEON: Cortney Lo M.D. IT OPERATIONS MANAGER: None. ANESTHESIA: General with endotracheal tube. ANESTHESIOLOGIST: Carol Londono CRNA. INDICATION: This is a 64-year-old male, who presented to emergency room complaining of pain in the umbilicus since yesterday 10 o'clock in the morning. Apparently, the pain was crampy and he denied any nausea or vomiting. He had a normal bowel movement yesterday. Physical examination showed irreducible and very tender umbilical hernia, had the size of a large plum. The CBC showed a WBC of 13,000 and the CAT scan of the abdomen showed strangulated umbilical hernia with small bowel obstruction. DESCRIPTION OF PROCEDURE: The patient was placed supine on the operating table and after general anesthesia with endotracheal tube, the abdomen was properly prepped and draped. A curved incision was given above the umbilicus, was carried sharply through subcutaneous tissue and Rafael fascia and the hernia sac was reached, which contained dark fluid. The hernia sac was dissected and isolated and then it was opened up. It was noticed that it had large amount of bloody fluid and there was a small loop of the small bowel, which was strangulated and very dark. The hernia neck was extended on the right side with cutting the fascia and the strangulation was released. The small bowel was delivered in the and it was noticed that the small part of the bowel was very dark, but it was packed with warm saline and gradually, the color returned. Besides that, this part of the bowel had peristalsis and it was had regular texture and so the decision was made not to resect and the bowel was returned into the intraperitoneal cavity. The hernia sac was resected and then the defect in the fascia was exposed, which at this time, was about 1 inch in diameter. The fascia was isolated about [address] around. The defect was obliterated with running suture of #1 Prolene. As there was strangulation of the bowel and there was a chance for presence of the bacteria in the area, I elected not to place the mesh and performed a simple closure. The defect in the fascia was completely closed. The incision was irrigated with antibiotic solution and then the umbilicus was reconstructed with application of multiple interrupted suture of 2-0 Vicryl between the fascia and the base of the umbilicus. The subcutaneous tissue was approximated with running suture of 2-0 Vicryl and then the skin incision was approximated with running subcuticular suture of 4-0 chromic. The patient tolerated the procedure well and was transferred to recovery room in stable condition and extubated. The sponge and needle count correct. Estimated blood loss was 10 mL. Condition of the patient at the end of procedure was stable. Cortney Lo M.D. DR: PAULA JOB#: [id number] CC:
--- NOTE | 2019-05-24 15:27 | Consultation ---
History of Present Illness General Date patient seen: May 24, 2019 Chief Complaint: Abdominal Pain Reason for Consultation: Leukocytosis Present Illness HPI Mr. Zamudio is a 64 yo male with PMHx of Asthma, DM, HTN, CAD s/p CAGB and CKD who presented to the ED on 05/24/19 with severe abdominal pain. The patient was has a umbilical hernia that the patient has been unable to reduce. He reports no fever but had severe pain for about 4 hr prior to presentation. In the ED he was afebrile with WBCs of 13. A CT scan showed Evidence of small bowel obstruction with transition point in the umbilical hernia. He was taken to the OR on 05/24/19 for repair of strangulated hernia. He is now post op with only mild abd pain. ID was consulted for leukocytosis PMHx/PSHx Asthma DM HTN CAD s/p CAGB CKD SocHx No E/T/D FamHx Not Contributory Allergies: Coded Allergies: No Known Allergies (Unverified , 05/21/18) Medication History Scheduled Amlodipine Besylate* (Amlodipine Besylate*), Unknown Dose ORAL DAILY, (Reported) Amlodipine Besylate* (Amlodipine Besylate*), Unknown Dose ORAL DAILY, (Reported) Aspirin* (Aspirin*), Unknown Dose ORAL DAILY, (Reported) Atorvastatin Calcium* (Atorvastatin Calcium*), Unknown Dose ORAL BEDTIME, ( Reported) Enalapril Maleate* (Enalapril Maleate*), Unknown Dose ORAL EVERY 12 HOURS, ( Reported) Metformin Hcl* (Metformin Hcl*), Unknown Dose ORAL TWICE A DAY, (Reported) Metoprolol Tartrate* (Metoprolol Tartrate*), Unknown Dose ORAL EVERY 12 HOURS, ( Reported) Ranitidine Hcl* (Zantac*), 150 MG ORAL DAILY, (Reported) Scheduled PRN Acetaminophen (Tylenol), 650 MG ORAL Q6H PRN for Prn Pain/Headache/Temp > 101 Tramadol Hcl* (Ultram*), 50 MG ORAL Q6H PRN for For Pain Miscellaneous Medications Nitroglycerin (Nitro-Bid*), 1 INCH TOPIC, (Reported) Discontinued Medications Aspirin* (Aspirin*), 81 MG ORAL DAILY, (Reported) Discontinued Reason: Pt stopped taking med Patient History Healthcare decision maker Resuscitation status Full Code Advanced Directive on File Review of Systems ROS Narrative 12 point ROS negative except as noted in the HPI Physical Exam Last 24 Hour Vital Signs Date Time Temp Pulse Resp B/P (MAP) Pulse Ox O2 Delivery O2 Flow Rate FiO2 05/24/19 13:06 68 132/76 05/24/19 13:01 108 138/78 05/24/19 11:51 68 18 98 05/24/19 08:00 99.5 100 16 122/72 (89) 94 05/24/19 07:45 98.4 90 16 138/88 (105) 95 05/24/19 07:37 Nasal Cannula 3.0 05/24/19 07:30 97.2 82 16 126/74 (91) 97 05/24/19 07:25 97.9 81 15 128/69 99 Nasal Cannula 3 05/24/19 07:10 77 18 120/68 100 Nasal Cannula 3 05/24/19 06:58 79 16 120/76 100 Nasal Cannula 3 05/24/19 06:48 78 20 113/69 100 Nasal Cannula 3 05/24/19 06:39 80 14 99 05/24/19 06:38 76 19 108/64 100 Nasal Cannula 3 05/24/19 06:33 77 17 124/58 100 Simple Mask 6 05/24/19 06:28 97.6 80 14 125/66 100 Simple Mask 6 05/24/19 04:50 97.5 93 20 127/77 96 Room Air 05/24/19 02:02 93 20 127/77 96 Room Air 05/24/19 01:35 97.5 05/23/19 22:33 88 19 Room Air 05/23/19 22:33 97.5 87 19 154/96 100 Room Air 05/23/19 22:22 97.5 88 19 154/96 (115) 100 Room Air Intake and Output 05/23/19 05/24/19 19:00 07:00 Intake Total 800 ml Output Total 10 ml Balance 790 ml Intake Oral 0 ml IV Total 800 ml Output Estimated Blood Loss 10 ml Laboratory Tests Test 05/23/19 22:35 05/23/19 23:35 White Blood Count 13.0 K/UL (4.8-10.8) H Red Blood Count 6.46 M/UL (4.70-6.10) H Hemoglobin 18.4 G/DL (14.2-18.0) *H Hematocrit 54.1 % (42.0-52.0) H Mean Corpuscular Volume 84 FL (80-99) Mean Corpuscular Hemoglobin 28.4 PG (27.0-31.0) Mean Corpuscular Hemoglobin Concent 34.0 G/DL (32.0-36.0) Red Cell Distribution Width 11.4 % (11.6-14.8) L Platelet Count 343 K/UL (150-450) Mean Platelet Volume 6.5 FL (6.5-10.1) Neutrophils (%) (Auto) 74.4 % (45.0-75.0) Lymphocytes (%) (Auto) 19.3 % (20.0-45.0) L Monocytes (%) (Auto) 4.6 % (1.0-10.0) Eosinophils (%) (Auto) 1.0 % (0.0-3.0) Basophils (%) (Auto) 0.7 % (0.0-2.0) Sodium Level 138 MMOL/L (136-145) Potassium Level 3.7 MMOL/L (3.5-5.1) Chloride Level 98 MMOL/L (98-107) Carbon Dioxide Level 25 MMOL/L (21-32) Anion Gap 15 mmol/L (5-15) Blood Urea Nitrogen 17 mg/dL (7-18) Creatinine 1.4 MG/DL (0.55-1.30) H Estimat Glomerular Filtration Rate 50.7 mL/min (>60) Glucose Level 198 MG/DL (74-106) H Calcium Level 10.2 MG/DL (8.5-10.1) H Total Bilirubin 0.5 MG/DL (0.2-1.0) Aspartate Amino Transf (AST/SGOT) 19 U/L (15-37) Alanine Aminotransferase (ALT/SGPT) 34 U/L (12-78) Alkaline Phosphatase 105 U/L (46-116) Total Protein 8.3 G/DL (6.4-8.2) H Albumin 4.1 G/DL (3.4-5.0) Globulin 4.2 g/dL Albumin/Globulin Ratio 1.0 (1.0-2.7) Lipase 308 U/L (73-393) Urine Color Pale yellow Urine Appearance Clear Urine pH 8 (4.5-8.0) Urine Specific [place] 1.010 (1.005-1.035) Urine Protein 3+ (NEGATIVE) H Urine Glucose (UA) Negative (NEGATIVE) Urine Ketones Negative (NEGATIVE) Urine Blood Negative (NEGATIVE) Urine Nitrite Negative (NEGATIVE) Urine Bilirubin Negative (NEGATIVE) Urine Urobilinogen Normal MG/DL (0.0-1.0) Urine Leukocyte Esterase 1+ (NEGATIVE) H Urine RBC 0-2 /HPF (0 - 0) H Urine WBC 0-2 /HPF (0 - 0) Urine Squamous Epithelial Cells Few /LPF (NONE/OCC) Urine Bacteria None /HPF (NONE) Height (Feet): 5 Height (Inches): 5.00 Weight (Pounds): 190 Medications Current Medications Medications (Trade) Dose Ordered Sig/Jose Manuel Route PRN Reason Start Time Stop Time Status Last Admin Dose Admin Acetaminophen (Tylenol) 650 mg Q6H PRN ORAL Mild Pain (Pain Scale 1-3) 05/24/19 06:30 06/23/19 06:29 Acetaminophen (Tylenol) 650 mg Q6H PRN ORAL Prn Pain/Headache/Temp > 101 05/24/19 10:30 06/23/19 10:29 Amlodipine Besylate (Norvasc) 2.5 mg DAILY ORAL 05/24/19 12:00 06/23/19 11:59 05/24/19 13:01 Aspirin (ASA) 81 mg DAILY ORAL 05/24/19 10:30 06/23/19 10:29 Atorvastatin Calcium (Lipitor) 20 mg BEDTIME ORAL 05/24/19 21:00 06/23/19 20:59 Cefazolin Sodium 1 gm/Dextrose 55 ml @ 110 mls/hr EVERY 8 HOURS IV 05/24/19 14:00 05/24/19 22:29 05/24/19 14:00 Dextrose (Dextrose 50%) 25 ml Q30M PRN IV Hypoglycemia 05/24/19 06:30 06/23/19 06:29 Dextrose (Dextrose 50%) 50 ml Q30M PRN IV Hypoglycemia 05/24/19 06:30 06/23/19 06:29 Dextrose/ Electrolytes 1,000 ml @ 100 mls/hr Q10H IV 05/24/19 07:00 06/23/19 06:59 05/24/19 08:43 Enalapril Maleate (Vasotec) 5 mg EVERY 12 HOURS ORAL 05/24/19 10:30 06/23/19 10:29 Hydromorphone HCl (Dilaudid) 0.5 mg Q3H PRN IVP Pain Score 1-3 05/24/19 06:30 05/31/19 06:29 Hydromorphone HCl (Dilaudid) 1 mg Q3H PRN IVP pain score 4-6 05/24/19 06:30 05/31/19 06:29 Insulin Aspart (NovoLOG) BEFORE MEALS AND HS SUBQ 05/24/19 06:30 06/23/19 06:29 Iohexol (OMNIPAQUE-300 100ml) 100 ml NOW PRN INJ Radiology Procedure 05/23/19 22:45 05/25/19 22:44 Metformin HCl (Glucophage) 500 mg TIAC ORAL 05/24/19 11:30 06/23/19 11:29 05/24/19 13:01 Metoclopramide HCl (Reglan) 10 mg Q6H PRN IVP Nausea & Vomiting- 2ND 05/24/19 06:30 06/23/19 06:29 Metoprolol Tartrate (Lopressor) 25 mg EVERY 12 HOURS ORAL 05/24/19 10:30 06/23/19 10:29 05/24/19 13:06 Nitroglycerin (Nitro-Bid) 1 inch PRN TOPIC 05/24/19 10:30 06/23/19 10:29 UNV Ondansetron HCl (Zofran) 4 mg Q6H PRN IVP Nausea & Vomiting 05/24/19 06:30 06/23/19 06:29 Pantoprazole (Protonix) 40 mg EVERY 12 HOURS ORAL 05/24/19 09:00 06/23/19 08:59 05/24/19 08:43 Tramadol HCl (Ultram) 50 mg Q6H PRN ORAL For Pain 05/24/19 10:30 05/31/19 10:29 Objective Narrative Gen: NAD HEENT: NCAT, MMM, EOMI, PERRL, No Oral lesion, no scleral icterus NECK: full range of motion, supple, no meningismus, No LAD, No JVD LUNGS: CTAB, No W/C, No Accessory muscle use CARDS: RRR, S1, S2, No M/R/G, ABD: Soft, TTP around OR sites, ND, No R/G, + BS, No HSM, No Masses, surgical sited C/D/I : Deferred Ext: C/C/E, Pulses 2+ B/L (DP, Rad): NEURO: A/O x 4, Strength and Sensation Grossly intact PSYCH: Normal mood and affect SKIN: Warm/dry, No rashes Assessment/Plan Assessment/Plan: 64 yo male with PMHx of Asthma, DM, HTN, CAD s/p CAGB and CKD who presented to the ED on 05/24/19 with severe abdominal pain. Leukcoytosis Likely secondary to strangulated hernia No fever Strangulated umbilical hernia S/P Repair 05/24/19 CT scan 05/24/19 - Evidence of small bowel obstruction with transition point in the umbilical hernia. Colonic diverticulosis. Left kidney contains a 3.5 cm cyst with enhancing septations. This is a Bosniak [address]/MRI renal protocol for better characterization. Asthma DM HTN CAD s/p CAGB CKD PLAN: Continue cefazolin for PPx abx Monitor CBC and Temps Thank you for this consult. [facility] will continue to follow the patient with you during this hospitalization. Everett Gonzales MD May 24, 2019 15:27
--- NOTE | 2019-05-24 15:36 | NUR ---
CASE MANAGEMENT:REVIEW 64 YR OLD MALE BIBA FROM HOME CC;ABDOMINAL PAIN SI;HERNIA. SMALL BOWEL OBSTRUCTION. 97.5 88 19 154/96 100% RA WBC 13.0 H/H 18.4/54.1 IS;1L NS IV MORPHINE ADMITTED TO MED SURG DCP; RETURN TO HOME
--- NOTE | 2019-05-24 16:11 | General Surgery Progress Note ---
General Surgery-Progress Note Subjective Procedure Performed release of strangulation and umbilical herniorrhaphy Symptoms: improved, tolerating diet Objective Last 24 Hour Vital Signs Date Time Temp Pulse Resp B/P (MAP) Pulse Ox O2 Delivery O2 Flow Rate FiO2 05/24/19 13:06 68 132/76 05/24/19 13:01 108 138/78 05/24/19 11:51 68 18 98 05/24/19 08:00 99.5 100 16 122/72 (89) 94 05/24/19 07:45 98.4 90 16 138/88 (105) 95 05/24/19 07:37 Nasal Cannula 3.0 05/24/19 07:30 97.2 82 16 126/74 (91) 97 05/24/19 07:25 97.9 81 15 128/69 99 Nasal Cannula 3 05/24/19 07:10 77 18 120/68 100 Nasal Cannula 3 05/24/19 06:58 79 16 120/76 100 Nasal Cannula 3 05/24/19 06:48 78 20 113/69 100 Nasal Cannula 3 05/24/19 06:39 80 14 99 05/24/19 06:38 76 19 108/64 100 Nasal Cannula 3 05/24/19 06:33 77 17 124/58 100 Simple Mask 6 05/24/19 06:28 97.6 80 14 125/66 100 Simple Mask 6 05/24/19 04:50 97.5 93 20 127/77 96 Room Air 05/24/19 02:02 93 20 127/77 96 Room Air 05/24/19 01:35 97.5 05/23/19 22:33 88 19 Room Air 05/23/19 22:33 97.5 87 19 154/96 100 Room Air 05/23/19 22:22 97.5 88 19 154/96 (115) 100 Room Air I&O Intake and Output 05/23/19 05/24/19 19:00 07:00 Intake Total 800 ml Output Total 10 ml Balance 790 ml Intake Oral 0 ml IV Total 800 ml Estimated Blood Loss 10 ml Dressing: dry Drains: none Respiratory: clear Abdomen: soft, distended, tenderness, decreased bowel sounds Extremities: no edema, no tenderness Laboratory Tests Test 05/23/19 22:35 05/23/19 23:35 White Blood Count 13.0 K/UL (4.8-10.8) H Red Blood Count 6.46 M/UL (4.70-6.10) H Hemoglobin 18.4 G/DL (14.2-18.0) *H Hematocrit 54.1 % (42.0-52.0) H Mean Corpuscular Volume 84 FL (80-99) Mean Corpuscular Hemoglobin 28.4 PG (27.0-31.0) Mean Corpuscular Hemoglobin Concent 34.0 G/DL (32.0-36.0) Red Cell Distribution Width 11.4 % (11.6-14.8) L Platelet Count 343 K/UL (150-450) Mean Platelet Volume 6.5 FL (6.5-10.1) Neutrophils (%) (Auto) 74.4 % (45.0-75.0) Lymphocytes (%) (Auto) 19.3 % (20.0-45.0) L Monocytes (%) (Auto) 4.6 % (1.0-10.0) Eosinophils (%) (Auto) 1.0 % (0.0-3.0) Basophils (%) (Auto) 0.7 % (0.0-2.0) Sodium Level 138 MMOL/L (136-145) Potassium Level 3.7 MMOL/L (3.5-5.1) Chloride Level 98 MMOL/L (98-107) Carbon Dioxide Level 25 MMOL/L (21-32) Anion Gap 15 mmol/L (5-15) Blood Urea Nitrogen 17 mg/dL (7-18) Creatinine 1.4 MG/DL (0.55-1.30) H Estimat Glomerular Filtration Rate 50.7 mL/min (>60) Glucose Level 198 MG/DL (74-106) H Calcium Level 10.2 MG/DL (8.5-10.1) H Total Bilirubin 0.5 MG/DL (0.2-1.0) Aspartate Amino Transf (AST/SGOT) 19 U/L (15-37) Alanine Aminotransferase (ALT/SGPT) 34 U/L (12-78) Alkaline Phosphatase 105 U/L (46-116) Total Protein 8.3 G/DL (6.4-8.2) H Albumin 4.1 G/DL (3.4-5.0) Globulin 4.2 g/dL Albumin/Globulin Ratio 1.0 (1.0-2.7) Lipase 308 U/L (73-393) Urine Color Pale yellow Urine Appearance Clear Urine pH 8 (4.5-8.0) Urine Specific [place] 1.010 (1.005-1.035) Urine Protein 3+ (NEGATIVE) H Urine Glucose (UA) Negative (NEGATIVE) Urine Ketones Negative (NEGATIVE) Urine Blood Negative (NEGATIVE) Urine Nitrite Negative (NEGATIVE) Urine Bilirubin Negative (NEGATIVE) Urine Urobilinogen Normal MG/DL (0.0-1.0) Urine Leukocyte Esterase 1+ (NEGATIVE) H Urine RBC 0-2 /HPF (0 - 0) H Urine WBC 0-2 /HPF (0 - 0) Urine Squamous Epithelial Cells Few /LPF (NONE/OCC) Urine Bacteria None /HPF (NONE) Assessment Post-op Diagnosis strangulated umbilical hernia Plan Additional Comments continue as before Cortney Lo MD May 24, 2019 16:11
--- NOTE | 2019-05-24 16:15 | History and Physical Report ---
DATE OF ADMISSION: 05/24/2019 TIME SEEN: 2 p.m. CONSULTANTS: 1. Cortney Lo M.D. 2. Leandro Mcdonald M.D. CHIEF COMPLAINT: Small bowel obstruction, status post surgery now. BRIEF HISTORY: This is a 64-year-old male who lives at home presented with above-mentioned diagnosis yesterday. Apparently has abdominal discomfort, came to [facility], diagnosed as above, going to surgery, admitted to medical floor. Currently, calm in bed, slightly hungry. No passing gas or bowel movement yet. Slight abdominal pain. PAST MEDICAL HISTORY: Diabetes. PAST SURGICAL HISTORY: None. ALLERGIES: Denies. SOCIAL HISTORY: No smoking. No alcohol. No intravenous drug abuse. FAMILY HISTORY: Noncontributory. PHYSICAL EXAMINATION: GENERAL: Calm in bed, oriented x3, slight distress due to abdominal pain. VITAL SIGNS: Temperature 99, pulse 108, respirations 18, blood pressure 132/76. CARDIOVASCULAR: No murmurs. LUNGS: Distant and clear. ABDOMEN: Bowel sounds negative. Slightly distended. Soft. No guarding. No rigidity. No rebound. EXTREMITIES: No cyanosis or edema. NEUROLOGIC: The patient moves all extremities, slightly weak. LABORATORY AND DIAGNOSTIC DATA: Labs at this time show white count 13, hemoglobin and hematocrit 18/54, platelets 343. Creatinine 1.4, glucose 198. Otherwise BMP is normal. Urinalysis show 2+ leukocyte esterase. MEDICATIONS: Include Lipitor, cefazolin, metformin, enalapril, metoprolol, pantoprazole. ASSESSMENT: 1. Small bowel obstruction, status post surgery. 2. Diabetes. 3. UTI. 4. Polycythemia. PLAN: 1. Dietary followup. 2. Blood pressure, blood sugar, pain control. 3. Antibiotics per Infectious Disease. 4. Hematology evaluation. 5. Infectious Disease evaluation. 6. CBC, BMP in the morning. Cristino Fan D.O. DR: GEORGE JOB#: [id number] CC:
[2019-05-24] MEDS: Docusate Sod/Senna tab ORAL SCH (18:00)
--- NOTE | 2019-05-24 19:10 | NUR ---
NURSE NOTES: Received pt from LIBRA Harvey. Pt AAO x 4, on room air. Surgical site dressing is clean and no s/s of infection noted. IV site intact and running D5 1/2 NS @ 100cc. No c/o pain / respiratory distress noted. Tolerating well clear liquid diet. No nausea and vomiting. Pt is ambulatory, steady gait with walker. Voiding urine well. Bed locked, lowest position, alarm on, side rails up, call light within reach. Will continue to monitor.
--- NOTE | 2019-05-24 20:13 | NUR ---
NURSE NOTES: Pt stated I had nitroglycerin 0.4mg po prn chest pain from home, not topical cream. Per Dr. Fan, continue nitroglycerin po. Order entered. RN discontinued nitro topical cream.
[2019-05-24] MEDS ORDERED: Nitroglycerin Subl 0.4mg tab SL PRN (20:30)
[2019-05-24] MEDS: Atorvastatin 20mg tab ORAL SCH (20:31)
--- NOTE | 2019-05-24 22:15 | 48 Hour Post Anesthesia Eval ---
Post Anesthesia Evaluation Procedure: repair of strangulated hernia Date of Evaluation: May 24, 2019 Time of Evaluation: 21:02 Blood Pressure Systolic: 152 0: 85 Pulse Rate: 103 Respiratory Rate: 18 Temperature (Fahrenheit): 98.2 O2 Sat by Pulse Oximetry: 97 Airway: patent Nausea: No Vomiting: No Pain Intensity: 2 Hydration Status: adequate Cardiopulmonary Status: Stable Mental Status/LOC: patient returned to baseline Follow-up Care/Observations: 0 Post-Anesthesia Complications: 0 Follow-up care needed: N/A Mynor Green MD May 24, 2019 22:15
[2019-05-25] VITALS (7 sets, daily range): BP systolic 93–143; BP diastolic 50–85
[2019-05-25] MEDS: D5 1/2NS w/KCl 20mEq 1,000 ML IV SCH (02:20)
[2019-05-25] MEDS: metFORMIN 500mg tab ORAL SCH ×3 (06:02→17:18)
[2019-05-25] MEDS: NovoLOG Insulin Flexpen SUBQ SCH ×5 (06:03→21:00)
--- NOTE | 2019-05-25 07:05 | NUR ---
HAND-OFF: Report given to LIBRA Ambriz.
--- NOTE | 2019-05-25 07:20 | NUR ---
NURSE NOTES: Received report from LIBRA Recio. Pt is A/Ox4, on RA, no apparent distress noted, sitting up in bed and eating breakfast. IV site intact and running D 5 1/2 NS @100 cc/hr. Mild pain at the midabdomen surgical site, but pt states it's "tolerable" and pt doesn't want pain med at the moment. Walker at bedside. Bed locked in lowest position, side rails up, call light within reach. Will continue to monitor.
[2019-05-25 07:30] LABS: HEMATOCRIT 47.1 % (42.0-52.0); HEMOGLOBIN 15.8 G/DL (14.2-18.0); MEAN CORPUSCULAR VOLUME 86 FL (80-99); PLATELET COUNT 238 K/UL (150-450); RED CELL DISTRIBUTION WIDTH 11.9 % (11.6-14.8)
[2019-05-25 07:49] LABS: ANION GAP 8 mmol/L (5-15); BLOOD UREA NITROGEN 14 mg/dL (7-18); CALCIUM 8.3 MG/DL (8.5-10.1); CARBON DIOXIDE 29 MMOL/L (21-32); CHLORIDE 102 MMOL/L (98-107); CREATININE 1.1 MG/DL (0.55-1.30); POTASSIUM 3.1 MMOL/L (3.5-5.1); SODIUM 139 MMOL/L (136-145)
--- NOTE | 2019-05-25 08:15 | NUR ---
NURSE NOTES: RN made Dr. Fan aware of pt's K 3.1 today even though he's getting D 5 1/2 NS with 20 meq KCl at 100 cc/hr. Awaiting for MD's order for K replacement.
--- NOTE | 2019-05-25 08:22 | NUR ---
NURSE NOTES: RN made Dr. Tirado aware of pt's Hgb and Hct trending down. No new orders received.
--- NOTE | 2019-05-25 08:37 | NUR ---
NURSE NOTES: Received order from Dr. Fan. Consult with Dr. Martinez for K 3.1. Order noted and carried out.
--- NOTE | 2019-05-25 09:24 | General Progress Note ---
Assessment/Plan Problem List: (1) SBO (small bowel obstruction) ICD Codes: K56.609 - Unspecified intestinal obstruction, unspecified as to partial versus complete obstruction SNOMED: 420355149 (2) Strangulated hernia of abdominal wall ICD Codes: K43.6 - Other and unspecified ventral hernia with obstruction, without gangrene SNOMED: 904519893 (3) Hernia ICD Codes: K46.9 - Unspecified abdominal hernia without obstruction or gangrene SNOMED: 92077528 Assessment/Plan: on clear passed gas fu surg recs abx Subjective ROS Limited/Unobtainable: Yes Allergies: Coded Allergies: No Known Allergies (Unverified , 05/21/18) Objective Last 24 Hour Vital Signs Date Time Temp Pulse Resp B/P (MAP) Pulse Ox O2 Delivery O2 Flow Rate FiO2 05/25/19 08:00 98.1 90 18 120/71 (87) 95 05/25/19 04:00 98.1 88 19 117/69 (85) 93 05/25/19 00:00 98.8 84 20 93/50 (64) 94 05/24/19 22:15 103 18 97 05/24/19 21:01 98.2 05/24/19 21:00 Room Air 05/24/19 20:32 103 152/85 05/24/19 20:32 152/85 05/24/19 20:00 101.0 103 20 152/85 (107) 97 05/24/19 16:00 97.7 107 20 124/81 (95) 97 05/24/19 13:06 68 132/76 05/24/19 13:01 108 138/78 05/24/19 11:51 68 18 98 Intake and Output 05/24/19 05/25/19 19:00 07:00 Intake Total 1160 ml 1100 ml Output Total 460 ml Balance 700 ml 1100 ml Intake Oral 960 ml IV Total 200 ml 1100 ml Output Urine Total 450 ml Estimated Blood Loss 10 ml # Voids 3 5 Laboratory Tests 05/25/19 06:20: White Blood Count 13.0H, Red Blood Count 5.50, Hemoglobin 15.8, Hematocrit 47.1 , Mean Corpuscular Volume 86, Mean Corpuscular Hemoglobin 28.7, Mean Corpuscular Hemoglobin Concent 33.4, Red Cell Distribution Width 11.9, Platelet Count 238, Mean Platelet Volume 6.4L, Neutrophils (%) (Auto) , Lymphocytes (%) ( Auto) , Monocytes (%) (Auto) , Eosinophils (%) (Auto) , Basophils (%) (Auto) , Neutrophils % (Manual) [Pending], Lymphocytes % (Manual) [Pending], Platelet Estimate [Pending], Platelet Morphology [Pending], Sodium Level 139, Potassium Level 3.1L, Chloride Level 102, Carbon Dioxide Level 29, Anion Gap 8, Blood Urea Nitrogen 14, Creatinine 1.1, Estimat Glomerular Filtration Rate > 60, Glucose Level 114H, Calcium Level 8.3L Height (Feet): 5 Height (Inches): 5.00 Weight (Pounds): 172 General Appearance: alert EENT: PERRL/EOMI Neck: normal alignment Cardiovascular: normal rate Respiratory/Chest: decreased breath sounds Abdomen: other - post surgical Extremities: non-tender Leandro Mcdonald MD May 25, 2019 09:24
[2019-05-25] MEDS: Aspirin Baby 81mg ORAL SCH (09:27)
[2019-05-25] MEDS: Docusate Sod/Senna tab ORAL SCH ×2 (09:27→17:18)
--- NOTE | 2019-05-25 10:00 | NUR ---
NURSE NOTES: RN spoke with Dr. Zimmer. Donnie MITCHELL'joy arredondo until he sees the pt. MD given BP parameters to hold if SBP <100 or HR <50. also ordered clonidine 0.1 mg Q8H PRN for SBP >160. Orders carried out.
[2019-05-25] MEDS: Enalapril 5mg tab ORAL SCH ×2 (10:10→20:54)
--- NOTE | 2019-05-25 10:58 | Consultation ---
Consult Note Consult Note asked to evaluate at the request of Dr Fan for fluid and electrolyte management 64-year-old male presents with severe abdominal pain 4 hours prior to arrival. He reports pain at maria a-umbilicus. He notes bulging at the umbilicus which she is unable to reduce on its own. He denies any prior history of similar symptoms. And denies any prior history of hernia. He reports prior history of surgeries. He denies any vomiting but reports sensation of nausea. He denies any change in bowel habits. Denies obstipation No Known Allergies (Unverified , 05/21/18) Asthma, kidney disease, diabetes, hypertension, coronary artery disease status post CABG CABG 6 years ago Hx Cardiac Problems: Yes - heart surgery 2 years ago Hx Hypertension: Yes Hx Diabetes: Yes . Assessment/Plan Patient was dehydrated on admit (1) SBO (small bowel obstruction) s/p Surgery (2) Strangulated hernia of abdominal wall (3) DM (4) HTN (5) CAD s/p Stent on clear liquids PO KCL monitor renal parameters Miguel Martinez MD May 25, 2019 10:58
--- NOTE | 2019-05-25 11:21 | NUR ---
NURSE EMERGENCY NOTES SPOKE WITH SUKHWINDER FROM [employer], PT HAS A SCHEDULE APPOINTMENT. INFORMATION GIVEN TO PT. CAROLINA Valdovinos NP [address] [place] [id number] APPT June TIME 0915 Addendum: 05/25/19 at 1731 by KSENIA LARES RN RN RECEIVED A CALL FROM [employer] WITH A CORRECTED APPOINTMENT. PLEASE DISREGARD THE PREVIOUS APPT. SEE BELOW PATIENTS APPOINTMENT CAROLINA VALDOVINOS NP June @ 0915 [id number] [facility] [id number]
--- NOTE | 2019-05-25 11:36 | NUR ---
NURSE NOTES: Pt refused insulin. Benefits and risks discussed.
--- NOTE | 2019-05-25 12:02 | Consultation ---
History of Present Illness General Chief Complaint: Abdominal Pain Reason for Consultation: Leukocytosis Present Illness Allergies: Coded Allergies: No Known Allergies (Unverified , 05/21/18) Medication History Scheduled Amlodipine Besylate* (Amlodipine Besylate*), Unknown Dose ORAL DAILY, (Reported) Amlodipine Besylate* (Amlodipine Besylate*), Unknown Dose ORAL DAILY, (Reported) Aspirin* (Aspirin*), Unknown Dose ORAL DAILY, (Reported) Atorvastatin Calcium* (Atorvastatin Calcium*), Unknown Dose ORAL BEDTIME, ( Reported) Enalapril Maleate* (Enalapril Maleate*), Unknown Dose ORAL EVERY 12 HOURS, ( Reported) Metformin Hcl* (Metformin Hcl*), Unknown Dose ORAL TWICE A DAY, (Reported) Metoprolol Tartrate* (Metoprolol Tartrate*), Unknown Dose ORAL EVERY 12 HOURS, ( Reported) Ranitidine Hcl* (Zantac*), 150 MG ORAL DAILY, (Reported) Scheduled PRN Acetaminophen (Tylenol), 650 MG ORAL Q6H PRN for Prn Pain/Headache/Temp > 101 Tramadol Hcl* (Ultram*), 50 MG ORAL Q6H PRN for For Pain Miscellaneous Medications Nitroglycerin (Nitro-Bid*), 1 INCH TOPIC, (Reported) Discontinued Medications Aspirin* (Aspirin*), 81 MG ORAL DAILY, (Reported) Discontinued Reason: Pt stopped taking med Patient History Healthcare decision maker Resuscitation status Full Code Advanced Directive on File Physical Exam Last 24 Hour Vital Signs Date Time Temp Pulse Resp B/P (MAP) Pulse Ox O2 Delivery O2 Flow Rate FiO2 05/25/19 10:10 93 127/74 05/25/19 10:10 127/74 05/25/19 09:00 Room Air 05/25/19 08:00 98.1 90 18 120/71 (87) 95 05/25/19 04:00 98.1 88 19 117/69 (85) 93 05/25/19 00:00 98.8 84 20 93/50 (64) 94 05/24/19 22:15 103 18 97 05/24/19 21:01 98.2 05/24/19 21:00 Room Air 05/24/19 20:32 103 152/85 05/24/19 20:32 152/85 05/24/19 20:00 101.0 103 20 152/85 (107) 97 12/19/19 16:00 97.7 107 20 124/81 (95) 97 05/24/19 13:06 68 132/76 05/24/19 13:01 108 138/78 Intake and Output 05/24/19 05/25/19 19:00 07:00 Intake Total 1160 ml 1100 ml Output Total 460 ml Balance 700 ml 1100 ml Intake Oral 960 ml IV Total 200 ml 1100 ml Output Urine Total 450 ml Estimated Blood Loss 10 ml # Voids 3 5 Laboratory Tests Test 05/25/19 06:20 White Blood Count 13.0 K/UL (4.8-10.8) H Red Blood Count 5.50 M/UL (4.70-6.10) Hemoglobin 15.8 G/DL (14.2-18.0) Hematocrit 47.1 % (42.0-52.0) Mean Corpuscular Volume 86 FL (80-99) Mean Corpuscular Hemoglobin 28.7 PG (27.0-31.0) Mean Corpuscular Hemoglobin Concent 33.4 G/DL (32.0-36.0) Red Cell Distribution Width 11.9 % (11.6-14.8) Platelet Count 238 K/UL (150-450) Mean Platelet Volume 6.4 FL (6.5-10.1) L Neutrophils (%) (Auto) % (45.0-75.0) Lymphocytes (%) (Auto) % (20.0-45.0) Monocytes (%) (Auto) % (1.0-10.0) Eosinophils (%) (Auto) % (0.0-3.0) Basophils (%) (Auto) % (0.0-2.0) Differential Total Cells Counted 100 Neutrophils % (Manual) 88 % (45-75) H Lymphocytes % (Manual) 9 % (20-45) L Monocytes % (Manual) 3 % (1-10) Eosinophils % (Manual) 0 % (0-3) Basophils % (Manual) 0 % (0-2) Band Neutrophils 0 % (0-8) Platelet Estimate Adequate Platelet Morphology Normal Red Blood Cell Morphology Normal Sodium Level 139 MMOL/L (136-145) Potassium Level 3.1 MMOL/L (3.5-5.1) L Chloride Level 102 MMOL/L (98-107) Carbon Dioxide Level 29 MMOL/L (21-32) Anion Gap 8 mmol/L (5-15) Blood Urea Nitrogen 14 mg/dL (7-18) Creatinine 1.1 MG/DL (0.55-1.30) Estimat Glomerular Filtration Rate > 60 mL/min (>60) Glucose Level 114 MG/DL (74-106) H Calcium Level 8.3 MG/DL (8.5-10.1) L Height (Feet): 5 Height (Inches): 5.00 Weight (Pounds): 172 Medications Current Medications Medications (Trade) Dose Ordered Sig/Jose Manuel Route PRN Reason Start Time Stop Time Status Last Admin Dose Admin Acetaminophen (Tylenol) 650 mg Q6H PRN ORAL Mild Pain (Pain Scale 1-3) 05/24/19 06:30 06/23/19 06:29 Acetaminophen (Tylenol) 650 mg Q6H PRN ORAL Prn Pain/Headache/Temp > 101 05/24/19 10:30 06/23/19 10:29 05/24/19 20:31 Aspirin (ASA) 81 mg DAILY ORAL 05/24/19 10:30 06/23/19 10:29 05/25/19 09:27 Atorvastatin Calcium (Lipitor) 20 mg BEDTIME ORAL 05/24/19 21:00 06/23/19 20:59 05/24/19 20:31 Clonidine HCl (Catapres Tab) 0.1 mg Q8H PRN ORAL For High Blood Pressure 05/25/19 10:30 06/24/19 10:29 Dextrose (Dextrose 50%) 25 ml Q30M PRN IV Hypoglycemia 05/24/19 06:30 06/23/19 06:29 Dextrose (Dextrose 50%) 50 ml Q30M PRN IV Hypoglycemia 05/24/19 06:30 06/23/19 06:29 Enalapril Maleate (Vasotec) 5 mg EVERY 12 HOURS ORAL 05/25/19 21:00 06/23/19 10:29 Hydromorphone HCl (Dilaudid) 0.5 mg Q3H PRN IVP Pain Score 1-3 05/24/19 06:30 05/31/19 06:29 Hydromorphone HCl (Dilaudid) 1 mg Q3H PRN IVP pain score 4-6 05/24/19 06:30 05/31/19 06:29 Insulin Aspart (NovoLOG) BEFORE MEALS AND HS SUBQ 05/24/19 06:30 06/23/19 06:29 Iohexol (OMNIPAQUE-300 100ml) 100 ml NOW PRN INJ Radiology Procedure 05/23/19 22:45 05/25/19 22:44 Metformin HCl (Glucophage) 500 mg TIAC ORAL 05/24/19 11:30 06/23/19 11:29 05/25/19 11:56 Metoclopramide HCl (Reglan) 10 mg Q6H PRN IVP Nausea & Vomiting- 2ND 05/24/19 06:30 06/23/19 06:29 Metoprolol Tartrate (Lopressor) 25 mg EVERY 12 HOURS ORAL 05/25/19 21:00 06/23/19 10:29 Nitroglycerin (Ntg) 0.4 mg Q5M PRN SL Prn Chest Pain 05/24/19 20:30 06/23/19 20:29 Ondansetron HCl (Zofran) 4 mg Q6H PRN IVP Nausea & Vomiting 05/24/19 06:30 06/23/19 06:29 Pantoprazole (Protonix) 40 mg EVERY 12 HOURS ORAL 05/24/19 09:00 06/23/19 08:59 05/25/19 09:27 Potassium Chloride (K-Dur) 20 meq TWICE A DAY ORAL 05/25/19 18:00 05/26/19 17:59 Senna/Docusate Sodium (Ebony-Colace) 1 tab TWICE A DAY ORAL 05/24/19 18:00 06/23/19 17:59 05/25/19 09:27 Sodium Chloride 1,000 ml @ 75 mls/hr [id number] IV 05/25/19 11:02 06/24/19 11:01 05/25/19 11:45 Tramadol HCl (Ultram) 50 mg Q6H PRN ORAL For Pain 05/24/19 10:30 05/31/19 10:29 Assessment/Plan Assessment/Plan: Hematology Consultation Note DOS: 05/25/19 TITUS BLAS: Joel Fan RFC: polycythemia ID 64-year-old male presents with severe abdominal pain 4 hours prior to arrival. He reports pain at ebony-umbilicus. He notes bulging at the umbilicus which she is unable to reduce on its own. He denies any prior history of similar symptoms. And denies any prior history of hernia. He reports prior history of surgeries. He denies any vomiting but reports sensation of nausea. He denies any change in bowel habits. Denies obstipation, yes s/p surgery and release of umbilical herniorraphy. Allergies: No Known Allergies (Unverified , 05/21/18) PMH Narrative Asthma, kidney disease, diabetes, hypertension, coronary artery disease status post CABG PSxH Narrative CABG 6 years ago Hx Cardiac Problems: Yes - heard surgery 2 years ago Hx Hypertension: Yes Hx Diabetes: Yes Review of Systems Constitutional: Denies: chills, fever Respiratory: Denies: cough, shortness of breath Cardiovascular: Denies: chest pain, palpitations Gastrointestinal: Reports: abdominal pain; Denies: diarrhea, vomiting Genitourinary: Denies: hematuria, pain Musculoskeletal: Denies: joint swelling Skin: Denies: rash, lesions Neurological: Denies: headache, dizziness PE Gen: nad Pulm: ctab CV: rrr, no mgr Abd: s/p surgical wound+ with dressing Ext: no cce Labs: noted Assess/Recs # Polycythemia -- likely due initially to dehydration, decreased po from sbo/ bowel strangulation --> at this time has improved hgb 18-->15 --> continue on fluids --> renal as aware, management of fluids --> smear noted --> consider order barrera 2 as needed if persists # SBO (small bowel obstruction) --> sp herniorrpahy repair and surgery following --> passing gas --> also on abxI # HYpokalemia repleted with k --> per renal # S/p Cabg--> continue on asa --> per cards # HTn --> clonidine and hydralazine prn YESSENIA Jesus and appreciate consultation Christopher Tirado MD May 25, 2019 12:02
--- NOTE | 2019-05-25 14:08 | General Progress Note ---
Assessment/Plan Problem List: (1) Polycythemia ICD Codes: D75.1 - Secondary polycythemia SNOMED: 752930986 (2) SBO (small bowel obstruction) ICD Codes: K56.609 - Unspecified intestinal obstruction, unspecified as to partial versus complete obstruction SNOMED: 866469686 Status: unchanged Assessment/Plan: gi sx f/u pain control adv diet if maday abx cbc bmp am Subjective Constitutional: Reports: weakness Allergies: Coded Allergies: No Known Allergies (Unverified , 05/21/18) All Systems: reviewed and negative except above Subjective calm in bed no bm as yet Objective Last 24 Hour Vital Signs Date Time Temp Pulse Resp B/P (MAP) Pulse Ox O2 Delivery O2 Flow Rate FiO2 05/25/19 12:00 97.8 93 19 130/77 (94) 97 05/25/19 10:10 93 127/74 05/25/19 10:10 127/74 05/25/19 09:00 Room Air 05/25/19 08:00 98.1 90 18 120/71 (87) 95 05/25/19 04:00 98.1 88 19 117/69 (85) 93 05/25/19 00:00 98.8 84 20 93/50 (64) 94 05/24/19 22:15 103 18 97 05/24/19 21:01 98.2 05/24/19 21:00 Room Air 05/24/19 20:32 103 152/85 05/24/19 20:32 152/85 05/24/19 20:00 101.0 103 20 152/85 (107) 97 05/24/19 16:00 97.7 107 20 124/81 (95) 97 Intake and Output 05/24/19 05/25/19 19:00 07:00 Intake Total 1160 ml 1100 ml Output Total 460 ml Balance 700 ml 1100 ml Intake Oral 960 ml IV Total 200 ml 1100 ml Output Urine Total 450 ml Estimated Blood Loss 10 ml # Voids 3 5 Laboratory Tests 05/25/19 06:20: White Blood Count 13.0H, Red Blood Count 5.50, Hemoglobin 15.8, Hematocrit 47.1 , Mean Corpuscular Volume 86, Mean Corpuscular Hemoglobin 28.7, Mean Corpuscular Hemoglobin Concent 33.4, Red Cell Distribution Width 11.9, Platelet Count 238, Mean Platelet Volume 6.4L, Neutrophils (%) (Auto) , Lymphocytes (%) ( Auto) , Monocytes (%) (Auto) , Eosinophils (%) (Auto) , Basophils (%) (Auto) , Differential Total Cells Counted 100, Neutrophils % (Manual) 88H, Lymphocytes % (Manual) 9L, Monocytes % (Manual) 3, Eosinophils % (Manual) 0, Basophils % ( Manual) 0, Band Neutrophils 0, Platelet Estimate Adequate, Platelet Morphology Normal, Red Blood Cell Morphology Normal, Sodium Level 139, Potassium Level 3.1L , Chloride Level 102, Carbon Dioxide Level 29, Anion Gap 8, Blood Urea Nitrogen 14, Creatinine 1.1, Estimat Glomerular Filtration Rate > 60, Glucose Level 114H , Calcium Level 8.3L Height (Feet): 5 Height (Inches): 5.00 Weight (Pounds): 172 General Appearance: alert EENT: normal ENT inspection Neck: non-tender Cardiovascular: normal peripheral pulses, normal rate, regular rhythm Respiratory/Chest: chest wall non-tender, lungs clear, normal breath sounds Abdomen: soft, hypoactive bowel sounds Extremities: normal inspection Edema: no edema noted Arm (L), no edema noted Arm (R), no edema noted Leg (L), no edema noted Leg (R), no edema noted Pedal (L), no edema noted Pedal (R), no edema noted Generalized Neurologic: motor weakness Skin: normal pigmentation, warm/dry Cristino Fan DO May 25, 2019 14:08
--- NOTE | 2019-05-25 14:19 | Infectious Diseases Prog Note ---
Assessment/Plan Assessment/Plan 64 yo male with PMHx of Asthma, DM, HTN, CAD s/p CAGB and CKD who presented to the ED on 05/24/19 with severe abdominal pain. Leukcoytosis Likely secondary to strangulated hernia No fever Strangulated umbilical hernia S/P Repair 05/24/19 CT scan 05/24/19 - Evidence of small bowel obstruction with transition point in the umbilical hernia. Colonic diverticulosis. Left kidney contains a 3.5 cm cyst with enhancing septations. This is a Bosniak [address]/MRI renal protocol for better characterization. Asthma DM HTN CAD s/p CAGB CKD PLAN: Start Unasyn #1 On D/C could Switch to Augmentin 875mg po BID to finish a week long course 05/24/19 SP cefazolin for PPx abx Monitor CBC and Temps Thank you for this consult. [facility] will continue to follow the patient with you during this hospitalization. Subjective Allergies: Coded Allergies: No Known Allergies (Unverified , 05/21/18) Subjective Afebrile Continued Leukocytosis Objective Vital Signs Last 24 Hour Vital Signs Date Time Temp Pulse Resp B/P (MAP) Pulse Ox O2 Delivery O2 Flow Rate FiO2 05/25/19 12:00 97.8 93 19 130/77 (94) 97 05/25/19 10:10 93 127/74 05/25/19 10:10 127/74 05/25/19 09:00 Room Air 05/25/19 08:00 98.1 90 18 120/71 (87) 95 05/25/19 04:00 98.1 88 19 117/69 (85) 93 05/25/19 00:00 98.8 84 20 93/50 (64) 94 05/24/19 22:15 103 18 97 05/24/19 21:01 98.2 05/24/19 21:00 Room Air 05/24/19 20:32 103 152/85 05/24/19 20:32 152/85 05/24/19 20:00 101.0 103 20 152/85 (107) 97 05/24/19 16:00 97.7 107 20 124/81 (95) 97 Height (Feet): 5 Height (Inches): 5.00 Weight (Pounds): 172 Objective Gen: NAD HEENT: NCAT, MMM, EOMI LUNGS: CTAB, No W CARDS: RRR, S1, S ABD: Soft, TTP around OR sites, ND Laboratory Tests Test 05/25/19 06:20 White Blood Count 13.0 K/UL (4.8-10.8) H Red Blood Count 5.50 M/UL (4.70-6.10) Hemoglobin 15.8 G/DL (14.2-18.0) Hematocrit 47.1 % (42.0-52.0) Mean Corpuscular Volume 86 FL (80-99) Mean Corpuscular Hemoglobin 28.7 PG (27.0-31.0) Mean Corpuscular Hemoglobin Concent 33.4 G/DL (32.0-36.0) Red Cell Distribution Width 11.9 % (11.6-14.8) Platelet Count 238 K/UL (150-450) Mean Platelet Volume 6.4 FL (6.5-10.1) L Neutrophils (%) (Auto) % (45.0-75.0) Lymphocytes (%) (Auto) % (20.0-45.0) Monocytes (%) (Auto) % (1.0-10.0) Eosinophils (%) (Auto) % (0.0-3.0) Basophils (%) (Auto) % (0.0-2.0) Differential Total Cells Counted 100 Neutrophils % (Manual) 88 % (45-75) H Lymphocytes % (Manual) 9 % (20-45) L Monocytes % (Manual) 3 % (1-10) Eosinophils % (Manual) 0 % (0-3) Basophils % (Manual) 0 % (0-2) Band Neutrophils 0 % (0-8) Platelet Estimate Adequate Platelet Morphology Normal Red Blood Cell Morphology Normal Sodium Level 139 MMOL/L (136-145) Potassium Level 3.1 MMOL/L (3.5-5.1) L Chloride Level 102 MMOL/L (98-107) Carbon Dioxide Level 29 MMOL/L (21-32) Anion Gap 8 mmol/L (5-15) Blood Urea Nitrogen 14 mg/dL (7-18) Creatinine 1.1 MG/DL (0.55-1.30) Estimat Glomerular Filtration Rate > 60 mL/min (>60) Glucose Level 114 MG/DL (74-106) H Calcium Level 8.3 MG/DL (8.5-10.1) L Current Medications Medications (Trade) Dose Ordered Sig/Jose Manuel Route PRN Reason Start Time Stop Time Status Last Admin Dose Admin Acetaminophen (Tylenol) 650 mg Q6H PRN ORAL Mild Pain (Pain Scale 1-3) 05/24/19 06:30 06/23/19 06:29 Acetaminophen (Tylenol) 650 mg Q6H PRN ORAL Prn Pain/Headache/Temp > 101 05/24/19 10:30 06/23/19 10:29 05/24/19 20:31 Aspirin (ASA) 81 mg DAILY ORAL 05/24/19 10:30 06/23/19 10:29 05/25/19 09:27 Atorvastatin Calcium (Lipitor) 20 mg BEDTIME ORAL 05/24/19 21:00 06/23/19 20:59 05/24/19 20:31 Clonidine HCl (Catapres Tab) 0.1 mg Q8H PRN ORAL For High Blood Pressure 05/25/19 10:30 06/24/19 10:29 Dextrose (Dextrose 50%) 25 ml Q30M PRN IV Hypoglycemia 05/24/19 06:30 06/23/19 06:29 Dextrose (Dextrose 50%) 50 ml Q30M PRN IV Hypoglycemia 05/24/19 06:30 06/23/19 06:29 Enalapril Maleate (Vasotec) 5 mg EVERY 12 HOURS ORAL 05/25/19 21:00 06/23/19 10:29 Hydromorphone HCl (Dilaudid) 0.5 mg Q3H PRN IVP Pain Score 1-3 05/24/19 06:30 05/31/19 06:29 Hydromorphone HCl (Dilaudid) 1 mg Q3H PRN IVP pain score 4-6 05/24/19 06:30 05/31/19 06:29 Insulin Aspart (NovoLOG) BEFORE MEALS AND HS SUBQ 05/24/19 06:30 06/23/19 06:29 Iohexol (OMNIPAQUE-300 100ml) 100 ml NOW PRN INJ Radiology Procedure 05/23/19 22:45 05/25/19 22:44 Metformin HCl (Glucophage) 500 mg TIAC ORAL 05/24/19 11:30 06/23/19 11:29 05/25/19 11:56 Metoclopramide HCl (Reglan) 10 mg Q6H PRN IVP Nausea & Vomiting- 2ND 05/24/19 06:30 06/23/19 06:29 Metoprolol Tartrate (Lopressor) 25 mg EVERY 12 HOURS ORAL 05/25/19 21:00 06/23/19 10:29 Nitroglycerin (Ntg) 0.4 mg Q5M PRN SL Prn Chest Pain 05/24/19 20:30 06/23/19 20:29 Ondansetron HCl (Zofran) 4 mg Q6H PRN IVP Nausea & Vomiting 05/24/19 06:30 06/23/19 06:29 Pantoprazole (Protonix) 40 mg EVERY 12 HOURS ORAL 05/24/19 09:00 06/23/19 08:59 05/25/19 09:27 Potassium Chloride (K-Dur) 20 meq TWICE A DAY ORAL 05/25/19 18:00 05/26/19 17:59 Senna/Docusate Sodium (Ebony-Colace) 1 tab TWICE A DAY ORAL 05/24/19 18:00 06/23/19 17:59 05/25/19 09:27 Sodium Chloride 1,000 ml @ 75 mls/hr [id number] IV 05/25/19 11:02 06/24/19 11:01 05/25/19 11:45 Tramadol HCl (Ultram) 50 mg Q6H PRN ORAL For Pain 05/24/19 10:30 05/31/19 10:29 Everett Gonzales MD May 25, 2019 14:19
--- NOTE | 2019-05-25 17:04 | General Surgery Progress Note ---
General Surgery-Progress Note Subjective Procedure Performed release of strangulation and umbilical herniorrhaphy Symptoms: passing flatus Objective Last 24 Hour Vital Signs Date Time Temp Pulse Resp B/P (MAP) Pulse Ox O2 Delivery O2 Flow Rate FiO2 05/25/19 12:00 97.8 93 19 130/77 (94) 97 05/25/19 10:10 93 127/74 05/25/19 10:10 127/74 05/25/19 09:00 Room Air 05/25/19 08:00 98.1 90 18 120/71 (87) 95 05/25/19 04:00 98.1 88 19 117/69 (85) 93 05/25/19 00:00 98.8 84 20 93/50 (64) 94 05/24/19 22:15 103 18 97 05/24/19 21:01 98.2 05/24/19 21:00 Room Air 05/24/19 20:32 103 152/85 05/24/19 20:32 152/85 05/24/19 20:00 101.0 103 20 152/85 (107) 97 I&O Intake and Output 05/24/19 05/25/19 19:00 07:00 Intake Total 1160 ml 1100 ml Output Total 460 ml Balance 700 ml 1100 ml Intake Oral 960 ml IV Total 200 ml 1100 ml Output Urine Total 450 ml Estimated Blood Loss 10 ml # Voids 3 5 Dressing: dry Drains: none Respiratory: clear Abdomen: soft, flat, decreased bowel sounds Extremities: no tenderness Laboratory Tests Test 05/25/19 06:20 White Blood Count 13.0 K/UL (4.8-10.8) H Red Blood Count 5.50 M/UL (4.70-6.10) Hemoglobin 15.8 G/DL (14.2-18.0) Hematocrit 47.1 % (42.0-52.0) Mean Corpuscular Volume 86 FL (80-99) Mean Corpuscular Hemoglobin 28.7 PG (27.0-31.0) Mean Corpuscular Hemoglobin Concent 33.4 G/DL (32.0-36.0) Red Cell Distribution Width 11.9 % (11.6-14.8) Platelet Count 238 K/UL (150-450) Mean Platelet Volume 6.4 FL (6.5-10.1) L Neutrophils (%) (Auto) % (45.0-75.0) Lymphocytes (%) (Auto) % (20.0-45.0) Monocytes (%) (Auto) % (1.0-10.0) Eosinophils (%) (Auto) % (0.0-3.0) Basophils (%) (Auto) % (0.0-2.0) Differential Total Cells Counted 100 Neutrophils % (Manual) 88 % (45-75) H Lymphocytes % (Manual) 9 % (20-45) L Monocytes % (Manual) 3 % (1-10) Eosinophils % (Manual) 0 % (0-3) Basophils % (Manual) 0 % (0-2) Band Neutrophils 0 % (0-8) Platelet Estimate Adequate Platelet Morphology Normal Red Blood Cell Morphology Normal Sodium Level 139 MMOL/L (136-145) Potassium Level 3.1 MMOL/L (3.5-5.1) L Chloride Level 102 MMOL/L (98-107) Carbon Dioxide Level 29 MMOL/L (21-32) Anion Gap 8 mmol/L (5-15) Blood Urea Nitrogen 14 mg/dL (7-18) Creatinine 1.1 MG/DL (0.55-1.30) Estimat Glomerular Filtration Rate > 60 mL/min (>60) Glucose Level 114 MG/DL (74-106) H Calcium Level 8.3 MG/DL (8.5-10.1) L Assessment Post-op Diagnosis strangulated umbilical hernia Plan Additional Comments can be discharged in AM Cortney Lo MD May 25, 2019 17:04
--- NOTE | 2019-05-25 17:19 | NUR ---
DISTRIBUTION MANAGERPAYMENT PROCESSOR SI: POD #1 S/P UMBILICAL HERNIORRHAPHY/ RELEASE OF STRANGULATED HERNIA T. 98.8 HR 84 RR 20 B/P 93/50 WBC 13.0 K 3.1 IS: IVF NS @ 75ML/HR AMPICILLIN IV MED/SURG STATUS
[2019-05-25] MEDS: Ampicillin/Sulbactam Sod 3 GM in NS 110 ML IVPB SCH ×2 (17:25→23:36)
--- NOTE | 2019-05-25 19:15 | NUR ---
HAND-OFF: Report given to LIBRA Millan.
--- NOTE | 2019-05-25 20:00 | NUR ---
NURSE NOTES: received pt in bed. AAO x4 in room air. no s/s of acute distress noted. call light within reach. bed is the lowest position. will continue to provide plan of care.
[2019-05-25] MEDS: Atorvastatin 20mg tab ORAL SCH (20:42)
[2019-05-25] MEDS ORDERED: Enalapril 5mg tab ORAL SCH (21:00)
--- NOTE | 2019-05-25 22:47 | NUR ---
NURSE NOTES: Pt refused insulin/Novolog. pt stated pt only want ot take tablet medications. Benefits and risks discussed and educated.
[2019-05-26] VITALS: BP 122/76
[2019-05-26 04:00] VITALS: BP 138/82
[2019-05-26] MEDS: Ampicillin/Sulbactam Sod 3 GM in NS 110 ML IVPB SCH ×2 (05:51→13:05)
[2019-05-26] MEDS: metFORMIN 500mg tab ORAL SCH ×2 (05:51→11:40)
[2019-05-26] MEDS: NovoLOG Insulin Flexpen SUBQ SCH ×3 (06:00→16:30)
--- NOTE | 2019-05-26 07:34 | NUR ---
HAND-OFF: Report given to Sam SMYTH.
--- NOTE | 2019-05-26 07:35 | NUR ---
NURSE NOTES: Received pt in bed, AAO x 4. Room air. No c/o of pain/distress. IV on L hand 22g intact and patent, running NS @ 75 ml/hr. Side rails x2. Walker at the bedside. Bed in the lowest and locked. Call light within reach. Will continue to monitor
[2019-05-26 08:00] VITALS: BP 132/82
[2019-05-26 08:16] LABS: HEMATOCRIT 43.3 % (42.0-52.0); HEMOGLOBIN 14.7 G/DL (14.2-18.0); MEAN CORPUSCULAR VOLUME 86 FL (80-99); PLATELET COUNT 227 K/UL (150-450); RED BLOOD COUNT 5.02 M/UL (4.70-6.10); RED CELL DISTRIBUTION WIDTH 12.2 % (11.6-14.8)
--- NOTE | 2019-05-26 08:23 | Nephrology Progress Note ---
Assessment/Plan Problem List: (1) Dehydration (2) SBO (small bowel obstruction) (3) HTN (hypertension) Assessment Patient was dehydrated on admit (1) SBO (small bowel obstruction) s/p Surgery (2) Strangulated hernia of abdominal wall (3) DM (4) HTN (5) CAD s/p Stent Plan on clear liquids PO KCL monitor renal parameters today's lab pending Objective Objective Last 24 Hour Vital Signs Date Time Temp Pulse Resp B/P (MAP) Pulse Ox O2 Delivery O2 Flow Rate FiO2 05/26/19 04:00 98.8 74 18 138/82 (100) 96 74 05/26/19 00:00 98.6 92 21 122/76 (91) 96 05/25/19 21:00 Room Air 05/25/19 20:54 143/82 05/25/19 20:48 96 143/82 05/25/19 20:00 99.5 96 20 143/80 (101) 97 05/25/19 18:45 99.3 105 20 124/75 (91) 95 05/25/19 16:00 99.3 105 19 128/85 (99) 100 05/25/19 12:00 97.8 93 19 130/77 (94) 97 05/25/19 10:10 93 127/74 05/25/19 10:10 127/74 05/25/19 09:00 Room Air Intake and Output 05/25/19 05/26/19 18:59 06:59 Intake Total 720 ml 820 ml Output Total 460 ml Balance 720 ml 360 ml Intake Oral 720 ml 720 ml IV Total 100 ml Output Urine Total 450 ml Estimated Blood Loss 10 ml # Voids 5 5 Laboratory Tests 05/26/19 06:50: White Blood Count 11.0H, Red Blood Count 5.02, Hemoglobin 14.7, Hematocrit 43.3 , Mean Corpuscular Volume 86, Mean Corpuscular Hemoglobin 29.3, Mean Corpuscular Hemoglobin Concent 34.0, Red Cell Distribution Width 12.2, Platelet Count 227, Mean Platelet Volume 6.8, Neutrophils (%) (Auto) , Lymphocytes (%) ( Auto) , Monocytes (%) (Auto) , Eosinophils (%) (Auto) , Basophils (%) (Auto) , Neutrophils % (Manual) [Pending], Lymphocytes % (Manual) [Pending], Platelet Estimate [Pending], Platelet Morphology [Pending], Sodium Level [Pending], Potassium Level [Pending], Chloride Level [Pending], Carbon Dioxide Level [ Pending], Blood Urea Nitrogen [Pending], Creatinine [Pending], Estimat Glomerular Filtration Rate [Pending], Glucose Level [Pending], Hemoglobin A1c [ Pending], Uric Acid [Pending], Calcium Level [Pending], Phosphorus Level [ Pending], Magnesium Level [Pending], Total Bilirubin [Pending], Gamma Glutamyl Transpeptidase [Pending], Aspartate Amino Transf (AST/SGOT) [Pending], Alanine Aminotransferase (ALT/SGPT) [Pending], Alkaline Phosphatase [Pending], C- Reactive Protein, Quantitative [Pending], Pro-B-Type Natriuretic Peptide [ Pending], Total Protein [Pending], Albumin [Pending], Globulin [Pending], Triglycerides Level [Pending], Cholesterol Level [Pending], LDL Cholesterol [ Pending], HDL Cholesterol [Pending], Cholesterol/HDL Ratio [Pending], Thyroid Stimulating Hormone (TSH) [Pending] Height (Feet): 5 Height (Inches): 5.00 Weight (Pounds): 172 Miguel Martinez MD May 26, 2019 08:23
--- NOTE | 2019-05-26 08:27 | General Progress Note ---
Assessment/Plan Problem List: (1) Polycythemia ICD Codes: D75.1 - Secondary polycythemia SNOMED: 986257233 (2) SBO (small bowel obstruction) ICD Codes: K56.609 - Unspecified intestinal obstruction, unspecified as to partial versus complete obstruction SNOMED: 351228091 Status: stable, progressing Assessment/Plan: gi sx f/u pain control adv diet if maday abx cbc bmp am dc plan Subjective Constitutional: Reports: weakness Allergies: Coded Allergies: No Known Allergies (Unverified , 05/21/18) All Systems: reviewed and negative except above Subjective calm in bed Objective Last 24 Hour Vital Signs Date Time Temp Pulse Resp B/P (MAP) Pulse Ox O2 Delivery O2 Flow Rate FiO2 05/26/19 08:00 98.9 124 19 132/82 (99) 97 05/26/19 04:00 98.8 74 18 138/82 (100) 96 74 05/26/19 00:00 98.6 92 21 122/76 (91) 96 05/25/19 21:00 Room Air 05/25/19 20:54 143/82 05/25/19 20:48 96 143/82 05/25/19 20:00 99.5 96 20 143/80 (101) 97 05/25/19 18:45 99.3 105 20 124/75 (91) 95 05/25/19 16:00 99.3 105 19 128/85 (99) 100 05/25/19 12:00 97.8 93 19 130/77 (94) 97 05/25/19 10:10 93 127/74 05/25/19 10:10 127/74 05/25/19 09:00 Room Air Intake and Output 05/25/19 05/26/19 19:00 07:00 Intake Total 720 ml 820 ml Output Total 460 ml Balance 720 ml 360 ml Intake Oral 720 ml 720 ml IV Total 100 ml Output Urine Total 450 ml Estimated Blood Loss 10 ml # Voids 5 5 Laboratory Tests 05/26/19 06:50: White Blood Count 11.0H, Red Blood Count 5.02, Hemoglobin 14.7, Hematocrit 43.3 , Mean Corpuscular Volume 86, Mean Corpuscular Hemoglobin 29.3, Mean Corpuscular Hemoglobin Concent 34.0, Red Cell Distribution Width 12.2, Platelet Count 227, Mean Platelet Volume 6.8, Neutrophils (%) (Auto) , Lymphocytes (%) ( Auto) , Monocytes (%) (Auto) , Eosinophils (%) (Auto) , Basophils (%) (Auto) , Neutrophils % (Manual) [Pending], Lymphocytes % (Manual) [Pending], Platelet Estimate [Pending], Platelet Morphology [Pending], Sodium Level [Pending], Potassium Level [Pending], Chloride Level [Pending], Carbon Dioxide Level [ Pending], Blood Urea Nitrogen [Pending], Creatinine [Pending], Estimat Glomerular Filtration Rate [Pending], Glucose Level [Pending], Hemoglobin A1c [ Pending], Uric Acid [Pending], Calcium Level [Pending], Phosphorus Level [ Pending], Magnesium Level [Pending], Total Bilirubin [Pending], Gamma Glutamyl Transpeptidase [Pending], Aspartate Amino Transf (AST/SGOT) [Pending], Alanine Aminotransferase (ALT/SGPT) [Pending], Alkaline Phosphatase [Pending], C- Reactive Protein, Quantitative [Pending], Pro-B-Type Natriuretic Peptide [ Pending], Total Protein [Pending], Albumin [Pending], Globulin [Pending], Triglycerides Level [Pending], Cholesterol Level [Pending], LDL Cholesterol [ Pending], HDL Cholesterol [Pending], Cholesterol/HDL Ratio [Pending], Thyroid Stimulating Hormone (TSH) [Pending] Height (Feet): 5 Height (Inches): 5.00 Weight (Pounds): 172 General Appearance: lethargic EENT: normal ENT inspection Neck: normal alignment Cardiovascular: normal peripheral pulses, normal rate, regular rhythm Respiratory/Chest: chest wall non-tender, lungs clear, normal breath sounds Abdomen: soft, hypoactive bowel sounds Extremities: normal inspection Edema: no edema noted Arm (L), no edema noted Arm (R), no edema noted Leg (L), no edema noted Leg (R), no edema noted Pedal (L), no edema noted Pedal (R), no edema noted Generalized Neurologic: motor weakness Skin: normal pigmentation, warm/dry Cristino Fan DO May 26, 2019 08:27
[2019-05-26] MEDS: Enalapril 5mg tab ORAL SCH (08:35)
[2019-05-26] MEDS: Docusate Sod/Senna tab ORAL SCH (08:35)
[2019-05-26] MEDS: Aspirin Baby 81mg ORAL SCH (08:35)
[2019-05-26 08:41] LABS: ALANINE AMINOTRANSFERASE 18 U/L (12-78); ALBUMIN 2.7 G/DL (3.4-5.0); ALBUMIN/GLOBULIN RATIO 0.7 (1.0-2.7); ALKALINE PHOSPHATASE 78 U/L (46-116); ANION GAP 8 mmol/L (5-15); ASPARTATE AMINO TRANSFERASE 15 U/L (15-37); BILIRUBIN,TOTAL 0.7 MG/DL (0.2-1.0); BLOOD UREA NITROGEN 13 mg/dL (7-18); CALCIUM 8.7 MG/DL (8.5-10.1); CARBON DIOXIDE 25 MMOL/L (21-32); CHLORIDE 104 MMOL/L (98-107); CHOLESTEROL 185 MG/DL (< 200); CREATININE 1.1 MG/DL (0.55-1.30); GAMMA GLUTAMYL TRANSPEPTIDASE 47 U/L (5-85); HDL CHOLESTEROL 25 MG/DL (40-60); PHOSPHORUS 1.5 MG/DL (2.5-4.9); POTASSIUM 3.7 MMOL/L (3.5-5.1); SODIUM 137 MMOL/L (136-145)
--- NOTE | 2019-05-26 08:48 | NUR ---
NURSE NOTES: LEFT MSG FOR DR MERIDA RE HR 130 , RADIAL (MANUALLY COUNTED) , AWAITING RESPONSE , NEED CARDIO CONSULT Addendum: 05/26/19 at 0900 by OREN BRUMFIELD RN PAGED DR PRASAD - RE ELEVATED HR, AWAITING CALL BACK
--- NOTE | 2019-05-26 09:22 | Cardiology Progress Note ---
Assessment/Plan Assessment/Plan The patient is seen and examined, full consult note is dictated. Objective Last 24 Hour Vital Signs Date Time Temp Pulse Resp B/P (MAP) Pulse Ox O2 Delivery O2 Flow Rate FiO2 05/26/19 08:35 132/82 05/26/19 08:35 124 132/82 05/26/19 08:00 98.9 124 19 132/82 (99) 97 05/26/19 04:00 98.8 74 18 138/82 (100) 96 74 05/26/19 00:00 98.6 92 21 122/76 (91) 96 05/25/19 21:00 Room Air 05/25/19 20:54 143/82 05/25/19 20:48 96 143/82 05/25/19 20:00 99.5 96 20 143/80 (101) 97 05/25/19 18:45 99.3 105 20 124/75 (91) 95 05/25/19 16:00 99.3 105 19 128/85 (99) 100 05/25/19 12:00 97.8 93 19 130/77 (94) 97 05/25/19 10:10 93 127/74 05/25/19 10:10 127/74 Intake and Output 05/25/19 05/26/19 19:00 07:00 Intake Total 720 ml 820 ml Output Total 460 ml Balance 720 ml 360 ml Intake Oral 720 ml 720 ml IV Total 100 ml Output Urine Total 450 ml Estimated Blood Loss 10 ml # Voids 5 5 Laboratory Tests Test 05/26/19 06:50 White Blood Count 11.0 K/UL (4.8-10.8) H Red Blood Count 5.02 M/UL (4.70-6.10) Hemoglobin 14.7 G/DL (14.2-18.0) Hematocrit 43.3 % (42.0-52.0) Mean Corpuscular Volume 86 FL (80-99) Mean Corpuscular Hemoglobin 29.3 PG (27.0-31.0) Mean Corpuscular Hemoglobin Concent 34.0 G/DL (32.0-36.0) Red Cell Distribution Width 12.2 % (11.6-14.8) Platelet Count 227 K/UL (150-450) Mean Platelet Volume 6.8 FL (6.5-10.1) Neutrophils (%) (Auto) % (45.0-75.0) Lymphocytes (%) (Auto) % (20.0-45.0) Monocytes (%) (Auto) % (1.0-10.0) Eosinophils (%) (Auto) % (0.0-3.0) Basophils (%) (Auto) % (0.0-2.0) Neutrophils % (Manual) Pending Lymphocytes % (Manual) Pending Platelet Estimate Pending Platelet Morphology Pending Sodium Level 137 MMOL/L (136-145) Potassium Level 3.7 MMOL/L (3.5-5.1) Chloride Level 104 MMOL/L (98-107) Carbon Dioxide Level 25 MMOL/L (21-32) Anion Gap 8 mmol/L (5-15) Blood Urea Nitrogen 13 mg/dL (7-18) Creatinine 1.1 MG/DL (0.55-1.30) Estimat Glomerular Filtration Rate > 60 mL/min (>60) Glucose Level 104 MG/DL (74-106) Hemoglobin A1c 6.7 % (4.3-6.0) H Uric Acid 4.4 MG/DL (2.6-7.2) Calcium Level 8.7 MG/DL (8.5-10.1) Phosphorus Level 1.5 MG/DL (2.5-4.9) L Magnesium Level 1.8 MG/DL (1.8-2.4) Total Bilirubin 0.7 MG/DL (0.2-1.0) Gamma Glutamyl Transpeptidase 47 U/L (5-85) Aspartate Amino Transf (AST/SGOT) 15 U/L (15-37) Alanine Aminotransferase (ALT/SGPT) 18 U/L (12-78) Alkaline Phosphatase 78 U/L (46-116) C-Reactive Protein, Quantitative Pending Pro-B-Type Natriuretic Peptide 278 pg/mL (0-125) H Total Protein 6.8 G/DL (6.4-8.2) Albumin 2.7 G/DL (3.4-5.0) L Globulin 4.1 g/dL Albumin/Globulin Ratio 0.7 (1.0-2.7) L Triglycerides Level Pending Cholesterol Level 185 MG/DL (< 200) LDL Cholesterol 101 mg/dL (<100) H HDL Cholesterol 25 MG/DL (40-60) L Cholesterol/HDL Ratio 7.4 (3.3-4.4) H Thyroid Stimulating Hormone (TSH) 1.813 uiU/mL (0.358-3.740) Willian Zimmer MD May 26, 2019 09:22
[2019-05-26] MEDS ORDERED: Metoprolol Tartrate 50mg tab ORAL SCH ×2 (09:30→21:00)
[2019-05-26 09:58] LABS: TRIGLYCERIDES 153 MG/DL (30-150)
--- NOTE | 2019-05-26 10:00 | Discharge Instructions ---
Discharge Instructions Discharge Instructions Follow up with: my office one week Diet: regular Resume Normal Activity?: Yes Activity: as tolerated For Surgical Patients Dressing Care: other - will be removed by surgeon May shower: Yes For Congestive Heart Failure Reminder Report to your physician any weight gain of 5 pounds or more in one week. Cortney Lo MD May 26, 2019 10:00
--- NOTE | 2019-05-26 10:07 | General Surgery Progress Note ---
General Surgery-Progress Note Subjective Procedure Performed release of strangulation and umbilical herniorrhaphy Symptoms: improved, BM Objective Last 24 Hour Vital Signs Date Time Temp Pulse Resp B/P (MAP) Pulse Ox O2 Delivery O2 Flow Rate FiO2 05/26/19 08:35 132/82 05/26/19 08:35 124 132/82 05/26/19 08:00 98.9 124 19 132/82 (99) 97 05/26/19 04:00 98.8 74 18 138/82 (100) 96 74 05/26/19 00:00 98.6 92 21 122/76 (91) 96 05/25/19 21:00 Room Air 05/25/19 20:54 143/82 05/25/19 20:48 96 143/82 05/25/19 20:00 99.5 96 20 143/80 (101) 97 05/25/19 18:45 99.3 105 20 124/75 (91) 95 05/25/19 16:00 99.3 105 19 128/85 (99) 100 05/25/19 12:00 97.8 93 19 130/77 (94) 97 05/25/19 10:10 93 127/74 05/25/19 10:10 127/74 I&O Intake and Output 05/25/19 05/26/19 19:00 07:00 Intake Total 720 ml 820 ml Output Total 460 ml Balance 720 ml 360 ml Intake Oral 720 ml 720 ml IV Total 100 ml Output Urine Total 450 ml Estimated Blood Loss 10 ml # Voids 5 5 Dressing: dry Drains: none Respiratory: clear Abdomen: soft, flat, present bowel sounds Extremities: no tenderness Laboratory Tests Test 05/26/19 06:50 White Blood Count 11.0 K/UL (4.8-10.8) H Red Blood Count 5.02 M/UL (4.70-6.10) Hemoglobin 14.7 G/DL (14.2-18.0) Hematocrit 43.3 % (42.0-52.0) Mean Corpuscular Volume 86 FL (80-99) Mean Corpuscular Hemoglobin 29.3 PG (27.0-31.0) Mean Corpuscular Hemoglobin Concent 34.0 G/DL (32.0-36.0) Red Cell Distribution Width 12.2 % (11.6-14.8) Platelet Count 227 K/UL (150-450) Mean Platelet Volume 6.8 FL (6.5-10.1) Neutrophils (%) (Auto) % (45.0-75.0) Lymphocytes (%) (Auto) % (20.0-45.0) Monocytes (%) (Auto) % (1.0-10.0) Eosinophils (%) (Auto) % (0.0-3.0) Basophils (%) (Auto) % (0.0-2.0) Differential Total Cells Counted 100 Neutrophils % (Manual) 86 % (45-75) H Lymphocytes % (Manual) 11 % (20-45) L Monocytes % (Manual) 2 % (1-10) Eosinophils % (Manual) 1 % (0-3) Basophils % (Manual) 0 % (0-2) Band Neutrophils 0 % (0-8) Platelet Estimate Adequate Platelet Morphology Normal Red Blood Cell Morphology Normal Sodium Level 137 MMOL/L (136-145) Potassium Level 3.7 MMOL/L (3.5-5.1) Chloride Level 104 MMOL/L (98-107) Carbon Dioxide Level 25 MMOL/L (21-32) Anion Gap 8 mmol/L (5-15) Blood Urea Nitrogen 13 mg/dL (7-18) Creatinine 1.1 MG/DL (0.55-1.30) Estimat Glomerular Filtration Rate > 60 mL/min (>60) Glucose Level 104 MG/DL (74-106) Hemoglobin A1c 6.7 % (4.3-6.0) H Uric Acid 4.4 MG/DL (2.6-7.2) Calcium Level 8.7 MG/DL (8.5-10.1) Phosphorus Level 1.5 MG/DL (2.5-4.9) L Magnesium Level 1.8 MG/DL (1.8-2.4) Total Bilirubin 0.7 MG/DL (0.2-1.0) Gamma Glutamyl Transpeptidase 47 U/L (5-85) Aspartate Amino Transf (AST/SGOT) 15 U/L (15-37) Alanine Aminotransferase (ALT/SGPT) 18 U/L (12-78) Alkaline Phosphatase 78 U/L (46-116) C-Reactive Protein, Quantitative Pending Pro-B-Type Natriuretic Peptide 278 pg/mL (0-125) H Total Protein 6.8 G/DL (6.4-8.2) Albumin 2.7 G/DL (3.4-5.0) L Globulin 4.1 g/dL Albumin/Globulin Ratio 0.7 (1.0-2.7) L Triglycerides Level 153 MG/DL (30-150) H Cholesterol Level 185 MG/DL (< 200) LDL Cholesterol 101 mg/dL (<100) H HDL Cholesterol 25 MG/DL (40-60) L Cholesterol/HDL Ratio 7.4 (3.3-4.4) H Thyroid Stimulating Hormone (TSH) 1.813 uiU/mL (0.358-3.740) Assessment Post-op Diagnosis strangulated umbilical hernia Plan Additional Comments discharge to home Cortney Lo MD May 26, 2019 10:07
[2019-05-26] MEDS ORDERED: Guaifenesin/DM 10ml syrup ORAL PRN (11:30)
[2019-05-26 12:00] VITALS: BP 143/94
--- NOTE | 2019-05-26 15:50 | NUR ---
NURSE NOTES: Called pharmacy regarding the prescription per dr. Fan for metoprolol 50 mg BID. Per pharmacy, patient is already on metoprolol 100 mg extended release daily.
[2019-05-26 16:00] VITALS: BP 134/85
[2019-05-26] MEDS ORDERED: METOPROLOL TART50 M1 ORAL (17:02)
[2019-05-26] MEDS ORDERED: CEPHALEXIN500 MG ORAL (17:02)
--- NOTE | 2019-05-26 17:19 | General Progress Note ---
Assessment/Plan Status: stable, progressing Assessment/Plan: Assessment/Plan Problem List: (1) SBO (small bowel obstruction) ICD Codes: K56.609 - Unspecified intestinal obstruction, unspecified as to partial versus complete obstruction SNOMED: 285457448 (2) Strangulated hernia of abdominal wall ICD Codes: K43.6 - Other and unspecified ventral hernia with obstruction, without gangrene SNOMED: 990392640 (3) Hernia ICD Codes: K46.9 - Unspecified abdominal hernia without obstruction or gangrene SNOMED: 14767334 Assessment/Plan: po diet as tolerated d/c planning abx fu labs Subjective Allergies: Coded Allergies: No Known Allergies (Unverified , 05/21/18) Subjective feels better tolerating po for d/c today Objective Last 24 Hour Vital Signs Date Time Temp Pulse Resp B/P (MAP) Pulse Ox O2 Delivery O2 Flow Rate FiO2 05/26/19 16:00 98.3 91 18 134/85 (101) 99 05/26/19 12:00 97.4 91 19 143/94 (110) 99 05/26/19 09:00 Room Air 05/26/19 08:35 132/82 05/26/19 08:35 124 132/82 05/26/19 08:00 98.9 124 19 132/82 (99) 97 05/26/19 04:00 98.8 74 18 138/82 (100) 96 74 05/26/19 00:00 98.6 92 21 122/76 (91) 96 05/25/19 21:00 Room Air 05/25/19 20:54 143/82 05/25/19 20:48 96 143/82 05/25/19 20:00 99.5 96 20 143/80 (101) 97 05/25/19 18:45 99.3 105 20 124/75 (91) 95 Intake and Output 05/25/19 05/26/19 19:00 07:00 Intake Total 720 ml 820 ml Output Total 460 ml Balance 720 ml 360 ml Intake Oral 720 ml 720 ml IV Total 100 ml Output Urine Total 450 ml Estimated Blood Loss 10 ml # Voids 5 5 Laboratory Tests 05/26/19 06:50: White Blood Count 11.0H, Red Blood Count 5.02, Hemoglobin 14.7, Hematocrit 43.3 , Mean Corpuscular Volume 86, Mean Corpuscular Hemoglobin 29.3, Mean Corpuscular Hemoglobin Concent 34.0, Red Cell Distribution Width 12.2, Platelet Count 227, Mean Platelet Volume 6.8, Neutrophils (%) (Auto) , Lymphocytes (%) ( Auto) , Monocytes (%) (Auto) , Eosinophils (%) (Auto) , Basophils (%) (Auto) , Differential Total Cells Counted 100, Neutrophils % (Manual) 86H, Lymphocytes % (Manual) 11L, Monocytes % (Manual) 2, Eosinophils % (Manual) 1, Basophils % ( Manual) 0, Band Neutrophils 0, Platelet Estimate Adequate, Platelet Morphology Normal, Red Blood Cell Morphology Normal, Sodium Level 137, Potassium Level 3.7 , Chloride Level 104, Carbon Dioxide Level 25, Anion Gap 8, Blood Urea Nitrogen 13, Creatinine 1.1, Estimat Glomerular Filtration Rate > 60, Glucose Level 104, Hemoglobin A1c 6.7H, Uric Acid 4.4, Calcium Level 8.7, Phosphorus Level 1.5L, Magnesium Level 1.8, Total Bilirubin 0.7, Gamma Glutamyl Transpeptidase 47, Aspartate Amino Transf (AST/SGOT) 15, Alanine Aminotransferase (ALT/SGPT) 18, Alkaline Phosphatase 78, C-Reactive Protein, Quantitative 34.6H, Pro-B-Type Natriuretic Peptide 278H, Total Protein 6.8, Albumin 2.7L, Globulin 4.1, Albumin /Globulin Ratio 0.7L, Triglycerides Level 153H, Cholesterol Level 185, LDL Cholesterol 101H, HDL Cholesterol 25L, Cholesterol/HDL Ratio 7.4H, Thyroid Stimulating Hormone (TSH) 1.813 Height (Feet): 5 Height (Inches): 5.00 Weight (Pounds): 172 Objective WDWN NCAT supple CTA RR abd soft ND NT Yue Gomes MD May 26, 2019 17:19
--- NOTE | 2019-05-26 18:16 | NUR ---
NURSE NOTES: Patient was discharged to home via private vehicle accompanied by . Escorted pt to the first floor. ID and IV was removed. No s/s of infection on the removal site. Belonging were accounted and given to patient. Discharge instruction given to follow up in one week with dr. Lo. Prescription was given.
--- NOTE | 2019-05-27 10:50 | NUR ---
CASE MANAGEMENT: CM review and clinical information (face sheet/ H&P/ER MD notes/DC summary) faxed to [facility] @ [phone] and [facility] @ [phone]. T# [id number].
--- NOTE | 2019-05-29 09:02 | Discharge Summary ---
Discharge Summary Discharge Summary _ DATE OF ADMISSION: 05/24/2019 DATE OF DISCHARGE: 05/26/2019 DISCHARGED BY: REASON FOR ADMISSION: 64 years old male with past medical history of hypertension, coronary artery disease, status post CABG, diabetes mellitus, asthma, kidney disease, presented with severe abdominal pain started about four hours prior to arrival. Pain was described as periumbilical . Patient noted bulging in the umbilicus , which he was unable to reduce on his own. Patient denied prior similar symptoms. Abdominal pelvic CT revealed small bowel obstruction secondary to small periumbilical area containing a knuckle of small bowel. Colonic diverticulosis. Fatty liver. Laboratory work-up revealed leukocytosis with WBC 13 ,hemoglobin 18.4, hematocrit 54.1. BUN of 18, creatinine 1.4. Glucose 198. Urinalysis revealed +3 protein , no evidence of urinary tract infection. Patient admitted with strangulated hernia and small bowel obstruction . Surgeon urgently contacted. CONSULTANTS: economic manager Dr. Zimmer ID specialist Dr. Gonzales GI specialist Dr. Gomes corporate security officer Dr. Dr. Martinez boring mill set up operator vertical/oncologist Dr. Tirado surgery [facility] COURSE: Patient required emergency repair of the umbilical hernia and release of strangulation , which was discussed with the patient . patient granted the consent. Patient subsequently undergone umbilical herniorrhaphy with release of the strangulation. Patient tolerated surgery well. Pain management was addressed, and pain was controlled. Postoperative care provided. Patient slowly started on diet and was advanced as tolerated. DVT and GI prophylaxis provided. Bowel regimen instituted. Ambulation was encouraged. Incentive spirometry encouraged while in the bed. ID specialist followed. Leukocytosis was likely due to strangulated hernia. Patient had no fever. Patient was on broad-spectrum antibiotic , which switched to oral upon discharge to complete the course of one week treatment. Counts were closely monitored. Polycythemia observed initially , was likely due to dehydration and resolved. Renal parameters and electrolytes were closely monitored. Potassium was replaced and stable upon discharge. Creatinine from 1.4 down to 1.1 ; initial acute kidney injury was due to dehydration and resolved. Home medication continued. Blood pressure remained stable with current regimen. Pulse oximetry was stable on room air , no evidence of asthma exacerbation. Lipid panel revealed borderline of LDL 101, triglycerides 153, stable total cholesterol, low HDL 25. Patient was educated on low-fat low-cholesterol diabetic diet and compliance with medication regimen at home. TSH was within normal limits. Blood sugar remained stable. Hemoglobin A1c at goal 6.7. Patient clinically stabilized and was ready for discharge home. FINAL DIAGNOSES: Strangulated umbilical hernia Small bowel obstruction Status post umbilical herniorrhaphy with release of the strangulation on 05/24 Dehydration Polycythemia, due to dehydration - resolved Asthma Diabetes mellitus Hypertension Coronary artery disease ,status post CABG Chronic kidney disease DISCHARGE MEDICATIONS: See Medication Reconciliation list. DISCHARGE INSTRUCTIONS: Patient was discharged home. Patient to follow-up with a surgeon as outpatient. I have been assigned to dictate discharge summary for this account. I was not involved in the patient's management. Reena Vernon NP May 29, 2019 09:02
== END 2019-05-26 18:15 | disposition home or self-care (01) | DRG 354 ==
LOC: EDBD 22:27 → EMR 23:00 → 4E 05-24 02:55 → EDBEDREQ 05-24 03:30
PROC: 0WQF0ZZ Repair Abdominal Wall, Open Approach (ICD-10-PCS; principal; 2019-05-24 04:45)
DX: K42.0 Umbilical hernia with obstruction, without gangrene (principal); K56.609 Unspecified intestinal obstruction, unspecified as to partial versus complete obstruction; N17.9 Acute kidney failure, unspecified; Z95.1 Presence of aortocoronary bypass graft; I25.10 Atherosclerotic heart disease of native coronary artery without angina pectoris; E11.9 Type 2 diabetes mellitus without complications; J45.909 Unspecified asthma, uncomplicated; Z79.82 Long term (current) use of aspirin; Z79.4 Long term (current) use of insulin; K57.90 Diverticulosis of intestine, part unspecified, without perforation or abscess without bleeding; K76.0 Fatty (change of) liver, not elsewhere classified; E86.0 Dehydration; D75.1 Secondary polycythemia; I12.9 Hypertensive chronic kidney disease with stage 1 through stage 4 chronic kidney disease, or unspecified chronic kidney disease; E11.22 Type 2 diabetes mellitus with diabetic chronic kidney disease; N18.9 Chronic kidney disease, unspecified
CPT/HCPCS: 36415; 74177; 80048; 80053; 80061; 81003; 82668; 82962; 82977; 83036; 83690; 83735; 83880; 84100; 84443; 84550; 85007; 85025; 86140; 94003; 94150; 96361; 96374; 99291; C9399; J1815; J2370; J2405; J2710; J2765; J7030; J8499